=== PATIENT | female | born 1940 | race Caucasian/White ===

== ENCOUNTER 2016-08-12 11:29 | Inpatient (IN) | payer MEDICARE, OTHER ==
[2016-08-12] VITALS (13 sets, daily range): BP systolic 158–186; BP diastolic 61–99; PULSE 66–87; RESP 11–20; O2SAT 94–100
[~2016-08-12] VITALS: Ht 165.1 cm; Wt 78.9 kg
[~2016-08-12 11:29] MED LIST: [UNRECOGNIZED DRUG - CODE] PO
--- NOTE | 2016-08-12 13:05 | ED.REPORT ---
HPI-Extremity Problem Lower Date of Service Aug 12, 2016 ED Provider: Bharath Adair PA-C Deidre is a 76-year-old female with chief complaint of left knee pain. She reports slipping and falling as she opened her car door this morning. She felt her knee twist and has ambulated only with assistance since then. She reports "cracking sounds." Denies numbness/tingling in her foot. Denies striking her head, losing consciousness or injuring her neck in the fall. She denies dizziness, presyncope, syncope preceding the fall. Patient has history of A. fib but is not anticoagulated. She has no known drug allergies. She last ate at 06:30 this morning. Nursing Notes Stated Complaint: LEFT KNEE PAIN Chief Complaint: Extremity Trauma Nursing Notes Reviewed: Yes Allergies: Coded Allergies: No Known Allergies (Verified , 08/12/16) Scheduled Calcium Carbonate (Calcium Carbonate) 600 Mg Tablet 1,200 MG PO BIDWM Cholecalciferol (Vitamin D3) (Vitamin D3) 1,000 Unit Tab.chew 1,000 UNIT PO DAILY Cyanocobalamin (Vitamin B12) 500 Mcg Tablet 1,000 MCG PO QAM Digoxin (Digoxin) 250 Mcg Tablet 250 MCG PO QAM Multivit with Calcium,Iron,Min (Therapeutic M) 1 Each Tablet 1 EACH PO DAILY Vitamin E Mixed (Vitamin E) 400 Unit Capsule 1,600 UNIT PO DAILY Scheduled PRN Acetaminophen (Extra Strength Non-Aspirin) 500 Mg Tablet 500 MG PO DAILY PRN PRN For Pain Dextran 70/Hypromellose (Nature's Tears Eye Drops) 0.1 %-0.3 % Drops 2 DROP OP Q2H PRN PRN DRY EYES General Time Seen by MD: 12:39 Chief Complaint Knee injury left Hx Obtained From: Patient Past Medical History Past Medical History atrial fibrillation - not anticoagulated Smoking History Never Smoker Social History Alcohol Use: Denies alcohol use Ambulatory Status Independent Review of Systems Review of Systems Note: Negative unless stated otherwise in history of present illness Basic Review of Systems Respiratory: No shortness of breath Cardiovascular: No chest pain, No dyspnea on exertion Psychiatric: Normal thought content Constitutional: Denies: Chills, Fatigue, Fever Complete sys rev & neg: except as marked. Physical Exam General: Well appearing, well developed, well nourished, no acute distress. Left hip: Vital to inspection, nontender, good range of motion. Left knee: Mild swelling, no redness or heat. Moderate lateral joint line tenderness. Extremely limited range of motion, slight crepitus noted. Negative apprehension sign. Left ankle/foot: Slight swelling around left ankle. Florentin edema, brisk capillary refill, DP pulse 2+, PT pulse not appreciated, skin warm. Moderately flatfoot. Nontender, full range of motion. Head: Atraumatic, normocephalic. Eyes: No scleral icterus or injection. No discharge. Vision grossly intact. ENT: Voice clear, hearing grossly intact. Respiratory: No respiratory distress, no increased work of breathing. Speaks in complete sentences. Skin: Warm and dry. Neurological: Grossly nonfocal. Psychological: alert and oriented. Speech appropriate, linear and logical. Behavior appropriate. Initial Vital Signs Vital Signs (First) Date Time Temp Pulse Resp B/P Pulse Ox O2 Delivery O2 Flow Rate FiO2 08/12/16 11:34 36.3 75 16 182/91 98 Room Air Initial VS: Reviewed, Vital signs abnormal (elevated blood pressure) General/Constitutional: Well-developed, Well-nourished Head / Eyes: Atraumatic, Normocephalic ENT: Mucous membranes moist Neck: Supple, Non-tender Respiratory: Breath sounds normal, Clear to auscultation, No respiratory distress Cardiovascular: Regular rate & rhythm, Heart sounds normal, Intact distal pulses (bilaterally. Neurologically intact distal to injured L knee) Abdomen / GI: Soft, Non-tender Back: No CVA tenderness Skin: Warm, Dry Neurologic: Alert Psychiatric: Mood/affect normal, Behavior normal, Normal thought content Left Knee: Positive: Joint effusion present, ROM painful, ROM reduced, Swelling present... (Moderate), Tenderness present... (Moderate), Negative: Ecchymosis present, Erythema present, Warmth present Interpretation & Diagnostics Lab Results Interpretation Result Diagram: 08/12/16 1432 08/12/16 1432 Test 08/12/16 14:32 08/12/16 15:23 White Blood Count 7.1th/mm3 (3.8-10.1) Red Blood Count 5.03mil/mm3 (3.90-5.20) Hemoglobin 14.6g/dL (12.0-15.6) Hematocrit 42.9% (35.0-46.0) Mean Corpuscular Volume 85.3fL (81-100) Mean Corpuscular Hemoglobin 29.0pg (27.0-35.0) Mean Corpuscular Hemoglobin Concent 34.0% (32.0-37.0) Red Cell Distribution Width 13.8% (12.3-15.4) Platelet Count 247bil/L (150-400) Neutrophils (%) (Auto) 76.2% (40-74) Lymphocytes (%) (Auto) 15.7% (14-46) Monocytes (%) (Auto) 7.1% (4-12) Eosinophils (%) (Auto) 0.4% (0-5) Basophils (%) (Auto) 0.3% (0-3) Sodium Level 137mEq/L (134-144) Potassium Level 3.8mEq/L (3.5-5.2) Chloride Level 99mEq/L (97-108) Carbon Dioxide Level 22mmol/L (18-29) Blood Urea Nitrogen 12mg/dL (8-27) Creatinine 0.56mg/dL (0.57-1.00) Estimat Glomerular Filtration Rate 152mL/min (>59) Glucose Level 104mg/dL (60-99) Calcium Level 9.8mg/dL (8.5-10.1) Total Bilirubin 0.8mg/dL (0.0-1.2) Aspartate Amino Transf (AST/SGOT) 27U/L (0-50) Alanine Aminotransferase (ALT/SGPT) 23U/L (0-32) Alkaline Phosphatase 56U/L (25-165) Troponin T < 0.010ug/L (0.0-0.011) Total Protein 7.5g/dL (6.4-8.4) Albumin 4.6g/dL (3.4-5.0) Digoxin Level 0.7nG/mL (0.9-2.0) Urine Color Yellow (YELLOW) Urine Appearance Clear (CLEAR,HAZY) Urine pH 5.5 (5.0-8.0) Urine Specific [place] 1.010 (1.003-1.035) Urine Protein Negativemg/dL (NEG,TRACE) Urine Glucose (UA) Negativemg/dL (NEGATIVE) Urine Ketones Negativemg/dL (NEGATIVE) Urine Occult Blood Negative (NEGATIVE) Urine Nitrite Negative (NEGATIVE) Urine Bilirubin Negative (NEGATIVE) Urine Urobilinogen Normalmg/dL (NORMAL) Urine Leukocyte Esterase Negative (NEGATIVE) Urine RBC 0-2/hpf (0-2) Urine WBC 0-5/hpf (0-5) Urine Epithelial Cells Few/hpf (NONE-MOD) Urine Crystals None seen (NONE SEEN) Urine Bacteria Few/hpf (NONE-FEW) Urine Hyaline Casts None/lpf (NONE) Urine Granular Casts None seen (NONE SEEN) Urine Waxy Casts None seen (NONE SEEN) Urine Red Blood Cell Casts None seen (NONE SEEN) Urine White Blood Cell Casts None seen (NONE SEEN) Urine Mucus None seen (None Seen) Urine Trichomonas None seen (NONE SEEN) Urine Yeast None (NONE SEEN) Urinalysis Comment None Urine Culture Reflexed Not indicated Lab Results Interpretation: PROCEDURE: CT KNEE LEFT W/O CONTRAST ([id number]) IMPRESSION: 1. Mildly displaced intra-articular fracture of the distal femur as described. 2. Small to moderate sized lipohemarthrosis. Dictated by: Mario Rosenbaum M.D. on 08/12/2016 at 15:04 Approved by: Mario Rosenbaum M.D. on 08/12/2016 at 15:17 ECG Interpretation ECG Interpretation: Rate is 78. Chronic Afib. Time: 15:10 Interpreted by: ED physician X-Ray Interpretation Xray Interpretation: PROCEDURE: X-RAY LEFT KNEE, THREE VIEWS ([id number]) IMPRESSION: 1. Oblique fracture through the distal femur with likely intra-articular extension at the intercondylar notch. Moderate effusion is present. There is minimal displacement. Dictated by: Marleen Forbes M.D. on 08/12/2016 at 13:44 Approved by: Marleen Forbes M.D. on 08/12/2016 at 13:47 Interpretation / Wet Read by: Interpret - ED physician, Interpret - Radiologist, Interp - [facility] Re-Eval/Medical Decision Re-Evaluation/Progress #1: Time of Eval: 14:17 Re-Evaluation/Progress Note: Discussed x-ray findings with patient along with . Patient states her pain is sufficiently controlled. Care assumed by Dr Choi. Exam repeated, plan developed. Questions answered Re-Evaluation/Progress #2: Time of Eval: 14:53 Re-Evaluation/Progress Note: Rechecked patient to explain the plan for treatment. Re-Evaluation/Progress #3: Time of Eval: 16:34 Re-Evaluation/Progress Note: Rechecked patient and explained plan for patient to visit the OR by approximately 1700, explaining that Dr. Flores will perform the necessary surgery on the patient. Patient understands and agrees with the plan. Consultation #1: Referral / Consult Name: Johnathan Flores MD Consulted With: Orthopedic Call Returned at: 14:17 Director Dermatology: Agrees with eval, Agrees with plan Note: Discussed patient case with Dr. Flores. Consultation #2: Referral / Consult Name: Johnathan Flores MD Consulted With: Orthopedic Call Returned at: 16:21 Director Dermatology: Will see patient Note: Discussed patient case with Dr. Flores who agrees to see patient. Consultation #3: Referral / Consult Name: Jd Henley MD Consulted With: Hospitalist Call Returned at: 17:09 Director Dermatology: Agrees with eval, Agrees with plan, Accepts admit Note: Discussed patient case with Dr. Henley who accepts patient admit. Counseled Regarding: Diagnosis, Lab results, Need for admission Discharge & Departure Impression: Primary Impression: Femur fracture, left Encounter type: initial encounter Femur location: distal Fracture type: closed Fracture morphology: other fracture Qualified Code: S72.492A - Other fracture of lower end of left femur, initial encounter for closed fracture Additional Impression: Elevated blood pressure Disposition: ADMITTED TO HOSPITAL Discharge Condition All VS Reviewed: Yes Condition: Improved Referrals: Mackenzie Gonzalez DO (PCP) [employer] Attestation Portions of this note were transcribed by Julio Richards. I, Dr. Choi personally performed the history, physical exam and medical decision-making; I reviewed and confirmed the accuracy of the information in the transcribed note. Signed by: Balbir Michaels, 08/12/2016 [id number]. copies to: Mackenzie Gonzalez DO; Johnathan Flores MD, Seth PA-C Aug 12, 2016 13:05 Julio Richards Aug 12, 2016 15:06 Jennie Choi MD Aug 12, 2016 15:09
--- NOTE | 2016-08-12 13:49 | DRSVH ---
PROCEDURE: X-RAY LEFT KNEE, THREE VIEWS ([id number]) INDICATIONS: left knee pain TECHNIQUE: 3 views of the knee were acquired. COMPARISON: None. FINDINGS: Bones: There is oblique fracture through the distal diaphysis and metaphysis of the femur with an blake roximate 11 mm overlap the proximal and distal fragments. There is minimal displacement. Lucency on t he frontal view does appear to extend to the articular surface at the level of the intercondylar notc h. There is prominent medial and patellofemoral compartment narrowing. Minimal lateral compartment narro wing is present. Periarticular osteophytes are present. Soft tissues: Moderate joint effusion. No suspicious soft tissue calcifications. IMPRESSION: 1. Oblique fracture through the distal femur with likely intra-articular extension at the intercondyl ar notch. Moderate effusion is present. There is minimal displacement. Dictated by: Marleen Forbes M.D. on 08/12/2016 at 13:44 Approved by: Marleen Forbes M.D. on 08/12/2016 at 13:47
[2016-08-12] MEDS ORDERED: fentaNYL-PF 50 mCg/mL 2 mL Inj ONE (13:50)
[2016-08-12] MEDS ORDERED: Remifentanil 1 mg/3 mL Inj ONE (13:50)
[2016-08-12] MEDS ORDERED: Dexamethasone 4 mg/mL Inj ONE (13:50)
[2016-08-12] MEDS ORDERED: Rocuronium 10 mg/mL 5 mL Inj ONE (13:50)
[2016-08-12] MEDS ORDERED: Propofol 10,000 mCg/mL 20 mL Inj ONE (13:50)
[2016-08-12] MEDS ORDERED: HYDROmorphone 0.5 mg/0.5 mL iSecure Syringe IVPUSH PRN (14:20)
[2016-08-12] MEDS ORDERED: Ondansetron 2 mg/mL 2 mL Inj IVPUSH PRN ×4 (14:20→21:40)
[2016-08-12 14:59] LABS: BASOPHILS % (AUTO) 0.3 % (0-3); EOSINOPHILS % (AUTO) 0.4 % (0-5); MONOCYTES % (AUTO) 7.1 % (4-12); Mean Corpuscular Volume 85.3 fL (81-100); NEUTROPHILS % (AUTO) 76.2 % (40-74); Platelet Count 247 bil/L (150-400)
[2016-08-12] MEDS ORDERED: ACET-2561 PO (15:18)
--- NOTE | 2016-08-12 15:18 | DRSVH ---
PROCEDURE: CT KNEE LEFT W/O CONTRAST ([id number]) INDICATIONS: fracture, pre op TECHNIQUE: Noncontrast 1-1.5 mm axial sections acquired from the mid-patella to the proximal tibia, with coronal and sagittal reformats. COMPARISON: [facility], CR, XR KNEE 3VW LT, 08/12/2016, 13:11. FINDINGS: Image quality: Excellent. Bones: There is diffuse osteopenia. There is a longitudinal shear fracture in the sagittal plane inv olving the distal medial femoral shaft extending through the medial femoral condyle to the intercondy lar notch with associated articular involvement. There is proximal displacement of the medial compon ent by approximately 9 mm and posterior displacement by approximately 7 mm. There is also mild media l displacement by approximately 9 mm proximally. The tibia appears intact. The patella also appears intact. There is tricompartmental osteophytosis in the knee. Moderate to severe joint space narrow ing is demonstrated in the medial compartment with subchondral sclerosis and cystic changes. Soft tissues: There is a small to moderate joint effusion with a lipohemarthrosis. There is para-art icular soft tissue swelling. No discrete hematoma collections but evaluation for vascular injury is limited in the absence of intravenous contrast. IMPRESSION: 1. Mildly displaced intra-articular fracture of the distal femur as described. 2. Small to moderate sized lipohemarthrosis. Dictated by: Mario Rosenbaum M.D. on 08/12/2016 at 15:04 Approved by: Mario Rosenbaum M.D. on 08/12/2016 at 15:17
[2016-08-12 15:23] LABS: TROPONIN T < 0.010 ug/L (0.0-0.011)
[2016-08-12] MEDS ORDERED: DIGO250T72 PO (15:23)
[2016-08-12 16:02] LABS: APPEARANCE,URINE CLEAR (CLEAR,HAZY); COLOR,URINE YELLOW (YELLOW); OCCULT BLOOD,URINE NEGATIVE (NEGATIVE); PH,URINE 5.5 (5.0-8.0); UROBILINOGEN,URINE NORMAL (NORMAL)
[2016-08-12] MEDS ORDERED: CYAN500 PO (16:29)
[2016-08-12] MEDS ORDERED: VITA400C64 PO (16:29)
[2016-08-12] MEDS ORDERED: MULT-140 PO (16:29)
[2016-08-12] MEDS ORDERED: CHOL10008 PO (16:29)
[2016-08-12] MEDS ORDERED: CALC600T20 PO (16:29)
[2016-08-12] MEDS ORDERED: DEXT15DR24 OP (16:29)
[2016-08-12] MEDS ORDERED: Alum-Mag Hydrox-Simeth 30 mL Suspension PO PRN (17:10)
[2016-08-12] MEDS ORDERED: HYDROcodone-APAP 5-325 mg Tablet PO PRN (17:10)
[2016-08-12] MEDS ORDERED: Polyethylene Glycol (PEG) 17 Gm Powder PO PRN ×2 (17:10→21:40)
--- NOTE | 2016-08-12 18:33 | PCM.CONORT ---
Subjective Date of Surgery: Aug 12, 2016 Surgeon Admitting Provider:Jd Henley MD Attending Provider:Jd Henley MD Primary Care Physician:Mackenzie Gonzalez DO Other Provider:Angeline Blanchard Anesthesia Reason for Consultation: left knee pain Allergy Allergies: Coded Allergies: No Known Allergies (Verified , 08/12/16) Medications Acetaminophen (Extra Strength Non-Aspirin) 500 Mg Tablet 500 MG PO DAILY PRN PRN For Pain (Reported) Last Taken: 500 MG on Unknown Date & Time Calcium Carbonate (Calcium Carbonate) 600 Mg Tablet 1,200 MG PO BIDWM (Reported) Last Taken: 1,200 MG on 08/12/16 0900 Cholecalciferol (Vitamin D3) (Vitamin D3) 1,000 Unit Tab.chew 1,000 UNIT PO DAILY (Reported) Last Taken: 1,000 UNITS on 08/12/16 0900 Cyanocobalamin (Vitamin B12) 500 Mcg Tablet 1,000 MCG PO QAM (Reported) Last Taken: 1,000 MCG on 08/12/16 0900 Dextran 70/Hypromellose (Nature's Tears Eye Drops) 0.1 %-0.3 % Drops 2 DROP OP Q2H PRN PRN DRY EYES (Reported) Last Taken: 2 DROPS on Unknown Date & Time Digoxin (Digoxin) 250 Mcg Tablet 250 MCG PO QAM (Reported) Last Taken: 250 MCG on 08/12/16 0800 Multivit with Calcium,Iron,Min ( Therapeutic M) 1 Each Tablet 1 EACH PO DAILY (Reported) Last Taken: 1 TABLET on 08/12/16 0900 Vitamin E Mixed (Vitamin E) 400 Unit Capsule 1,600 UNIT PO DAILY (Reported) Last Taken: 1,600 UNITS on 08/12/16 0900 Discontinued Medications Digoxin-Expunged Drug, Do Not Renew! (Digoxin-Expunged Drug, Do Not Renew!) 250 Mcg Tablet 250 MCG PO AM (Reported) History History of ENT Problems?: No Hx of Heart Problems?: Yes Cardiovascular History: Positive for:: Irregular Heartbeat (afib) Denies:: Congestive Heart Failure Hypertension Other Cardiac History: hx HLD Hx of Respiratory Problem?: No Respiratory History: Denies:: Tuberculosis Hx Neurologic Problems?: No Hx of GI Problems?: No Hx of Problems?: No Female Hx: Denies:: Currently Endometriosis Pelvic Inflammatory Problems with Breasts? Hx Musculoskeletal Problems?: Yes Other History/Comment Deidre Mesa is a 76-year-old female who reports slipping and falling as she opened her car door this morning. She felt her knee twist and reports hearing "cracking sounds." Patient has history of A. fib but is not anticoagulated. She has no known drug allergies. She last ate at 06:30 this morning. The patient states that their pain is a sharp in nature and mild/moderate in severity localized to the medial and lateral aspect of the left knee without radiation. Moreover, the pain is exacerbated by activities, especially with any movement. Rest seems to improve the symptoms. There is no reports numbness , tingling, or weakness to the affected distal lower extremity. The patient denies any fever, chills, nausea, vomiting, chest pain, shortness of breath, or calf tenderness. Previous treatment has included: None Work/hobbies/sports include: Accompanied by Son and granddaughter Hx of Psycho/Social Problems?: No Hx Surgeries?: Yes (APPY AGE 12, RIGHT HAND) Hx Any Other Health Problems?: Yes Other History: Positive for:: Hospitalization Thyroid Disease (hx of parathyroid adenoma) Denies:: Cancer History Blood Transfusions: Positive for:: Accept Blood Products? Denies:: Blood Transfusions Hx Diabetes: No (WAS PREDIABETIC FOR A WHILE) Other Pertinent History: varicose veins Hx Alcohol Use: NoHx Substance Use: No Smoking Status: Never Smoker Objective Exam Vital Signs & I/O Vital Sign- Last 8 Hours Date Time Temp Pulse Resp B/P Pulse Ox O2 Delivery O2 Flow Rate FiO2 08/12/16 15:10 66 13 158/61 94 Room Air 08/12/16 11:34 36.3 75 16 182/91 98 Room Air Lab & Micro Results Laboratory Tests Test 08/12/16 14:32 08/12/16 15:23 White Blood Count 7.1th/mm3 (3.8-10.1) Red Blood Count 5.03mil/mm3 (3.90-5.20) Hemoglobin 14.6g/dL (12.0-15.6) Hematocrit 42.9% (35.0-46.0) Mean Corpuscular Volume 85.3fL (81-100) Mean Corpuscular Hemoglobin 29.0pg (27.0-35.0) Mean Corpuscular Hemoglobin Concent 34.0% (32.0-37.0) Red Cell Distribution Width 13.8% (12.3-15.4) Platelet Count 247bil/L (150-400) Neutrophils (%) (Auto) 76.2% (40-74) Lymphocytes (%) (Auto) 15.7% (14-46) Monocytes (%) (Auto) 7.1% (4-12) Eosinophils (%) (Auto) 0.4% (0-5) Basophils (%) (Auto) 0.3% (0-3) Sodium Level 137mEq/L (134-144) Potassium Level 3.8mEq/L (3.5-5.2) Chloride Level 99mEq/L (97-108) Carbon Dioxide Level 22mmol/L (18-29) Blood Urea Nitrogen 12mg/dL (8-27) Creatinine 0.56mg/dL (0.57-1.00) Estimat Glomerular Filtration Rate 152mL/min (>59) Glucose Level 104mg/dL (60-99) Calcium Level 9.8mg/dL (8.5-10.1) Total Bilirubin 0.8mg/dL (0.0-1.2) Aspartate Amino Transf (AST/SGOT) 27U/L (0-50) Alanine Aminotransferase (ALT/SGPT) 23U/L (0-32) Alkaline Phosphatase 56U/L (25-165) Troponin T < 0.010ug/L (0.0-0.011) Total Protein 7.5g/dL (6.4-8.4) Albumin 4.6g/dL (3.4-5.0) Digoxin Level 0.7nG/mL (0.9-2.0) Urine Color Yellow (YELLOW) Urine Appearance Clear (CLEAR,HAZY) Urine pH 5.5 (5.0-8.0) Urine Specific [place] 1.010 (1.003-1.035) Urine Protein Negativemg/dL (NEG,TRACE) Urine Glucose (UA) Negativemg/dL (NEGATIVE) Urine Ketones Negativemg/dL (NEGATIVE) Urine Occult Blood Negative (NEGATIVE) Urine Nitrite Negative (NEGATIVE) Urine Bilirubin Negative (NEGATIVE) Urine Urobilinogen Normalmg/dL (NORMAL) Urine Leukocyte Esterase Negative (NEGATIVE) Urine RBC 0-2/hpf (0-2) Urine WBC 0-5/hpf (0-5) Urine Epithelial Cells Few/hpf (NONE-MOD) Urine Crystals None seen (NONE SEEN) Urine Bacteria Few/hpf (NONE-FEW) Urine Hyaline Casts None/lpf (NONE) Urine Granular Casts None seen (NONE SEEN) Urine Waxy Casts None seen (NONE SEEN) Urine Red Blood Cell Casts None seen (NONE SEEN) Urine White Blood Cell Casts None seen (NONE SEEN) Urine Mucus None seen (None Seen) Urine Trichomonas None seen (NONE SEEN) Urine Yeast None (NONE SEEN) Urinalysis Comment None Urine Culture Reflexed Not indicated Result Diagram: 08/12/16 1432 08/12/16 1432 Review of Systems: Constitutional: Negative, except as otherwise mentioned in the history above. Ophthalmologic: Negative, except as otherwise mentioned in the history above. Cardiovascular: Negative, except as otherwise mentioned in the history above. Respiratory: Negative, except as otherwise mentioned in the history above. Gastrointestinal: Negative, except as otherwise mentioned in the history above. Genitourinary: Negative, except as otherwise mentioned in the history above. Musculoskeletal: Negative, except as otherwise mentioned in the history above. Neurological: Negative, except as otherwise mentioned in the history above. Psychiatric: Negative, except as otherwise mentioned in the history above. Hematologic/Lymphatic: Negative, except as otherwise mentioned in the history above. Allergic/Immunologic: Negative, except as otherwise mentioned in the history above. H&P Surgical Exam Exam Musculoskeletal: CONST: WD,WN, NAD, A+OX3 OCULAR: EOMI, no conjunctivitis/icterus ENT: no deformities, scars or lesions CARDIAC: Pulse is regular. No cyanosis,clubbing,edema RESP: regular,unlabored MSK: normal light touch SPN/DPN/TN distributions.4+/5 DF/PF/Inv/Ev, 2+ DP Left KNEE - scars. ++effusion - erythema - atrophy or asymmetry. TTP medial and lateral knee alignment- neutral, ROM Deferred Additional Information Three-view x-rays the left knee demonstrates a medial condylar distal femur intra-articular fracture with displacement H&P Preop Plan Impression Left distal femur intraarticular condylar fracture Problems: Risks & Benefits * We have reviewed the risks and benefits as well as the alternatives to surgery. All questions were answered to the patient's satisfaction and a counseling note to that effect. The patient has provided informed consent. * I have counseled the patient regarding the deleterious effects that smoking during the perioperative period can have upon wound healing, infection rates, and the overall rate of complications. Plan Nonweightbearing with lower extremity Recommend CT scan for further delineation of the fracture pattern Plan for ORIF of left distal femur Pain meds as needed Continue medical management per primary Please call with questions DVT prophylaxis after surgery I reviewed my findings with the patient. The patient remains symptomatic following the initial injury. In light of the ongoing symptoms, our plan is to proceed with surgical intervention. I have explained to the patient the nature of the surgery as well as the perioperative recovery including the risks, benefits and alternatives. A clear explanation was given to the patient regarding the condition present, and the available conservative and surgical options. It was emphasized that the risks and benefits of surgery include but are not limited to infection, wound healing problems, damage to adjacent structures such as nerves, blood vessels and tendons, intermodal truck driver disability and pain, arthritis, hypersensitivity, deep vein thrombosis, pulmonary embolism, broken hardware, failure of surgery, need for further procedures at time of surgery or later, loss of limb, heart attack, stroke, and . The patient was given an explanation and the patient voiced understanding of what to expect after the procedure or surgery, the limitations in activities of daily living, the likely duration for post operative recovery and the instructions that are to be followed. At the end the patient was invited to seek clarification or ask further questions but there were none. I have advised the patient first that there are no guarantees as to outcome and that their ultimate improvement is largely based on the extent of the pre-existing underlying pathology. The patients questions were answered and they stated understanding of the nature of the surgical procedure and gave written and verbal consent to proceed. The patient voiced understanding of the entire consultation. Johnathan Flores MD Aug 12, 2016 18:33
[2016-08-12] MEDS ORDERED: Lactated Ringer's 1,000 ML IV ONE ×2 (19:00→21:39)
[2016-08-12] MEDS ORDERED: Ropivacaine-PF 0.5% 30 mL Inj INFILTRATE ONE (19:59)
[2016-08-12] MEDS ORDERED: Lactated Ringer's 1,000 ML IV SCH (20:23)
[2016-08-12] MEDS ORDERED: Lactated Ringer's 500 ML IV PRN (20:23)
--- NOTE | 2016-08-12 20:23 | PCM.HPANE ---
Patient Data Surgeon Admitting Provider:Jd Henley MD Attending Provider:Jd Henley MD Primary Care Physician:Mackenzie Gonzalez DO Other Provider:Angeline Blanchard Anesthesia Reason for Visit L Knee Distal Femur Fracture, R/O Chronic Afib Ht/WT & BMI Height (Feet): 5 Height (Inches): 5 Weight (Kilograms): 81.82 Body Mass Index Allergies Coded Allergies: No Known Allergies (Verified , 08/12/16) Past Anesthesia History Anesthesia History: Denies:: Anesthesia Reactions Diabetes History Hx Diabetes?: No (WAS PREDIABETIC FOR A WHILE) MRSA MRSA: No Medications Reported Medications Dextran 70/Hypromellose (Nature's Tears Eye Drops)0.1 %-0.3 % Drops2 Drop OP Q2H PRN DRY EYES 08/12/16 Calcium Carbonate 600 Mg Tablet1,200 Mg PO BIDWM 08/12/16 Multivit with Calcium,Iron,Min (Therapeutic M)1 Each Tablet1 Each PO DAILY 08/12/16 Cholecalciferol (Vitamin D3) (Vitamin D3)1,000 Unit Tab.chew1,000 Unit PO DAILY 08/12/16 Cyanocobalamin (Vitamin B12)500 Mcg Tablet1,000 Mcg PO QAM 08/12/16 Vitamin E Mixed (Vitamin E)400 Unit Capsule1,600 Unit PO DAILY 30 Days 08/12/16 Digoxin 250 Mcg [id number] Mcg PO QAM 08/12/16 Acetaminophen (Extra Strength Non-Aspirin)500 Mg [id number] Mg PO DAILY PRN For Pain 08/12/16 Discontinued Reported Medications Digoxin-Expunged Drug, Do Not Renew! 250 Mcg [id number] Mcg PO AM 06/03/08 History History of ENT Problems?: No Hx of Heart Problems?: Yes Cardiovascular History: Positive for:: Irregular Heartbeat (afib) Denies:: Congestive Heart Failure Hypertension Other Cardiac History: hx HLD Hx of Respiratory Problem?: No Respiratory History: Denies:: Tuberculosis Hx Neurologic Problems?: No Hx of GI Problems?: No Hx of Problems?: No Female Hx: Denies:: Currently Endometriosis Pelvic Inflammatory Problems with Breasts? Hx Musculoskeletal Problems?: Yes Hx of Psycho/Social Problems?: No Hx Surgeries?: Yes (APPY AGE 12, RIGHT HAND) Hx Any Other Health Problems?: Yes Other History: Positive for:: Hospitalization Thyroid Disease (hx of parathyroid adenoma) Denies:: Cancer History Blood Transfusions: Positive for:: Accept Blood Products? Denies:: Blood Transfusions Hx Diabetes: No (WAS PREDIABETIC FOR A WHILE) Other Pertinent History: varicose veins Hx Alcohol Use: NoHx Substance Use: No Smoking Status: Never Smoker Stop/Bang Treated for Sleep Apnea?: No Do You Have a CPAP Machine?: No S-Snoring: Do You Snore Loudly: No T-Tired: feel tired, fatigued: No O-Obsered: Observed not breath: No P-Blood Pressure: treated: No B- Body Mass Index > 35 kg/m2: No A- Age over 50: Yes N- Neck Large Circumference: No G- Gender Male: No JITENDRA Total Score: 0 Risk Assessment Category Category 1A: Patient has history of documented sleep apnea, and HAS NOT received any narcotic, sedative or anesthesia administration during this stay. Category 1B: Patient has history of documented sleep apnea, and HAS received any narcotic , sedative or anesthesia administration during this stay Category 2: Patient has SUSPECTED Obstructive Sleep Apnea, and HAS received any narcotic , sedative or anesthesia administration during this stay. Category 3: Patient has SUSPECTED Obstructive Sleep Apnea and HAS NOT received narcotic, sedative or anesthesia administration during this stay. Category 4: Outpatient in Procedural Areas with known sleep apnea or who screen positive for High Risk via the STOP/BANG questionnaire. Exam Exam Vital Signs Vital Signs Date Time Temp Pulse Resp B/P Pulse Ox O2 Delivery O2 Flow Rate FiO2 08/12/16 15:10 66 13 158/61 94 Room Air 08/12/16 11:34 36.3 75 16 182/91 98 Room Air General Appearance: Alert, Oriented X3, Cooperative, Severe Distress (Left leg pain) HEENT/AIRWAY: MP 2, Neck Movement (FROM), Mouth Opening (3 FBMO) Lungs: Clear to Auscultation, Normal Air Movement Heart: Other (irreg irreg) Meds/Labs/Diagnostics Admission Meds Current Medications Acetaminophen (Tylenol) 975 mg ONCE ONCE PO Last administered on 08/12/16 13: 31; Start 08/12/16 at 13:00; Stop 08/12/16 at 13:01; Status DC Oxycodone HCl (Roxicodone IR) 5 mg ONCE ONCE PO Last administered on 3/31/ 17at 13:31; Start 08/12/16 at 13:00; Stop 08/12/16 at 13:01; Status DC Labs Test 08/12/16 14:32 08/12/16 15:23 White Blood Count 7.1th/mm3 (3.8-10.1) Red Blood Count 5.03mil/mm3 (3.90-5.20) Hemoglobin 14.6g/dL (12.0-15.6) Hematocrit 42.9% (35.0-46.0) Mean Corpuscular Volume 85.3fL (81-100) Mean Corpuscular Hemoglobin 29.0pg (27.0-35.0) Mean Corpuscular Hemoglobin Concent 34.0% (32.0-37.0) Red Cell Distribution Width 13.8% (12.3-15.4) Platelet Count 247bil/L (150-400) Neutrophils (%) (Auto) 76.2% (40-74) Lymphocytes (%) (Auto) 15.7% (14-46) Monocytes (%) (Auto) 7.1% (4-12) Eosinophils (%) (Auto) 0.4% (0-5) Basophils (%) (Auto) 0.3% (0-3) Sodium Level 137mEq/L (134-144) Potassium Level 3.8mEq/L (3.5-5.2) Chloride Level 99mEq/L (97-108) Carbon Dioxide Level 22mmol/L (18-29) Blood Urea Nitrogen 12mg/dL (8-27) Creatinine 0.56mg/dL (0.57-1.00) Estimat Glomerular Filtration Rate 152mL/min (>59) Glucose Level 104mg/dL (60-99) Calcium Level 9.8mg/dL (8.5-10.1) Total Bilirubin 0.8mg/dL (0.0-1.2) Aspartate Amino Transf (AST/SGOT) 27U/L (0-50) Alanine Aminotransferase (ALT/SGPT) 23U/L (0-32) Alkaline Phosphatase 56U/L (25-165) Troponin T < 0.010ug/L (0.0-0.011) Total Protein 7.5g/dL (6.4-8.4) Albumin 4.6g/dL (3.4-5.0) Digoxin Level 0.7nG/mL (0.9-2.0) Urine Color Yellow (YELLOW) Urine Appearance Clear (CLEAR,HAZY) Urine pH 5.5 (5.0-8.0) Urine Specific [place] 1.010 (1.003-1.035) Urine Protein Negativemg/dL (NEG,TRACE) Urine Glucose (UA) Negativemg/dL (NEGATIVE) Urine Ketones Negativemg/dL (NEGATIVE) Urine Occult Blood Negative (NEGATIVE) Urine Nitrite Negative (NEGATIVE) Urine Bilirubin Negative (NEGATIVE) Urine Urobilinogen Normalmg/dL (NORMAL) Urine Leukocyte Esterase Negative (NEGATIVE) Urine RBC 0-2/hpf (0-2) Urine WBC 0-5/hpf (0-5) Urine Epithelial Cells Few/hpf (NONE-MOD) Urine Crystals None seen (NONE SEEN) Urine Bacteria Few/hpf (NONE-FEW) Urine Hyaline Casts None/lpf (NONE) Urine Granular Casts None seen (NONE SEEN) Urine Waxy Casts None seen (NONE SEEN) Urine Red Blood Cell Casts None seen (NONE SEEN) Urine White Blood Cell Casts None seen (NONE SEEN) Urine Mucus None seen (None Seen) Urine Trichomonas None seen (NONE SEEN) Urine Yeast None (NONE SEEN) Urinalysis Comment None Urine Culture Reflexed Not indicated Plan Impression Patient chart reviewed, patient interviewed and anesthestic plan with risks, benefits, and alternatives discussed, and informed consent obtained. NPO Status: > 8hrs ASA Physical Status: ASA3 Plus Emergency (A fib, severe femur fracture) Anesthetic Support Modalities: Arterial Line (possible A line consent obtained) Anesthetic Plan: GA, Regional Block (consent for postoperative rescue femoral block obtained if OK'd by surgeon) Bene/Risks/Altern/Consents: Yes HP Complete Prior to Induction: Yes Junior Gay MD Aug 12, 2016 19:09
[2016-08-12] MEDS ORDERED: EPHEDrine Sulfate 50 mg/mL Inj IVPUSH PRN (20:25)
[2016-08-12] MEDS ORDERED: Phenylephrine 10,000 mCg/mL Inj IVPUSH PRN (20:25)
[2016-08-12] MEDS ORDERED: Labetalol 5 mg/mL 4 mL Inj IV PRN (20:25)
[2016-08-12] MEDS ORDERED: Atropine 0.4 mg/mL Inj IVPUSH PRN (20:25)
[2016-08-12] MEDS ORDERED: fentaNYL-PF 50 mCg/mL 2 mL Inj IVPUSH PRN (20:25)
[2016-08-12] MEDS ORDERED: MetoCLOpramide 5 mg/mL 2 mL Inj IVPUSH PRN ×2 (20:25→21:40)
[2016-08-12] MEDS: Lactated Ringer's 1,000 ML IV SCH (21:36)
[2016-08-12] MEDS ORDERED: HYDROmorphone 2 mg/mL Inj IVPUSH PRN (21:40)
[2016-08-12] MEDS ORDERED: Ketorolac 15 mg/mL Inj IVPUSH PRN (21:40)
[2016-08-12] MEDS ORDERED: Sodium Biphos-Phos 133 mL Enema RECTAL PRN (21:40)
[2016-08-12] MEDS ORDERED: Magnesium Hydroxide 10 mL Oral Concentration PO PRN (21:40)
[2016-08-12] MEDS ORDERED: diphenhydrAMINE 25 mg Capsule PO PRN (21:40)
--- NOTE | 2016-08-12 21:52 | PCM.ORTHOP ---
Orthopedic Operative Report Date of Service: Aug 12, 2016 Pre Operative Diagnosis Left distal femur intra-articular condyle fracture Post Operative Diagnosis Same Procedure Left distal femur open reduction internal fixation Surgeon Surgeon: Johnathan Flores Assistants: Marc Walker Indication for Procedure Left distal femur fracture Findings Left comminuted spiral distal femur fracture Details of Procedure Indications: Deidre Mesa is a 76-year-old female with a distal femur fracture which occurred this morning. A clear explanation was given to the patient regarding the condition present, and the available conservative and surgical options. It was emphasized that the risks and benefits of surgery include but are not limited to infection, wound healing problems, damage to adjacent structures such as nerves, blood vessels and tendons, long term care social worker disability and pain, arthritis, hypersensitivity, deep vein thrombosis, pulmonary embolism, broken hardware, failure of surgery, need for further procedures at time of surgery or later, cast related problems, loss of limb or life. The patient was given an explanation and the patient voiced understanding of what to expect after the procedure or surgery, the limitations in activities of daily living, the likely duration for post operative recovery and the instructions that are to be followed. At the end the patient was invited to seek clarification or ask further questions but there were none. The patient voiced understanding of the entire consultation. Description of Operation: Patient taken to operating room and transferred to operating table in supine position. Time out was performed with both anesthesia and orthopaedics faculty present to confirm details of case to be performed. After time out performed, patient placed under general anesthesia and endotracheal tube secured into place. Patient position was again checked to ensure all bony prominences adequately padded. The left leg was prepped and draped in the usual sterile fashion. A 7 cm lateral incision was made along the medial thigh.. Dissection was carefully carried between the sartorius and the vastus medialis. The adductor Jeremías and sartorius was retracted posteriorly to protect the neurovascular structures. Maintaining hemostasis throughout. The osuna elevater was used to elevate the soft tissue off the medial condyle to allow centered positioning of our 6 hole LCP plate and screws as well as exposure of the fracture. The distal femur fracture was reduced with traction and elevation of the distal fragments out of extension. The intraarticular component was reduced with a Lion clamp and then the distal 7.0 cannulated partially threaded screws were used to hold the fracture reduced. A Buttress 6-hole plate was applied to the medial column and secured with K-wires distally through the locking guides followed by locking nonlocking screws. The plate position was verified with orthogonal views using fluoroscopy. Fluoroscopy confirmed reduction of the fracture and plate placement in orthogonal views. Fluoroscopy determined excellent alignment of limb and position of the plate. The fracture was well reduced despite the medial and posterior comminution as confirmed with C-arm in AP and lateral views. The wound was thoroughly irrigated by bulb irrigation. Hemostasis was obtained with electrocautery. The fascia band was closed with 0 Vicryl. The subcutaneous space was closed with interrupted 2-0 Vicryl suture. The skin was closed with riki. Xeroform, 4 x 4's, ABD, STEFFANY hose stocking and knee immobilizer was placed.The patient was extubated without difficulty and transferred to the PACU in stable condition. FRUIT TRIMMER SURGEON: During the operation, the services of physician expanded duty dental assistant were medically indicated and necessary to provide exposure of the operative site for the surgical procedure and to maintain the limb in a proper position to carry out the operation safely and efficiently. Without the qualified assistant general manager being present, it would have extended the operative procedure and made the procedure technically more difficult to perform. Please keep dressing clean dry and intact. Do not get your dressing wet. Please change your dressing daily starting on postop day #2. Please take anticoagulation as prescribed for 4 weeks. You may remain touchdown weightbearing to the affected lower extremity with brace. You may remove your brace for gentle knee range of motion in 2 weeks. Return to clinic in 2 weeks with x-rays in clinic with me. You will follow up with my PA in 6 weeks with x- rays and we will progress your weightbearing status once radiographic healing has been noted. Please keep the affected extremity elevated when possible. You may use ice and/or heat as needed for comfort. Grafts, Implants: Implants-See Implant Record Complications There were no periprocedural complications identified. Condition Stable Anesthetic Administered: GA Catheters: None Output, Estimated Blood Loss: 50 Blood Admin during surgery: No Surgical Cast or Splint: Knee Immobilizer Surgical Specimen Removed: No Specimen sent to Pathology: No copies to: Johnathan Flores MD, Christopher L MD Aug 12, 2016 21:52
[2016-08-12] MEDS: HYDROmorphone 1 mg/mL Inj IVPUSH PRN ×3 (22:05→22:30)
--- NOTE | 2016-08-12 23:35 | PCM.HPMED ---
Subjective Date of Service Aug 12, 2016 Primary Provider: Admitting Physician: Primary Care Physician: Mackenzie Gonzalez DO Attending Physician: Admit Status: From the Emergency Department, Full Admit, Remote Telemetry Chief Complaint: Left knee pain after fall History of Present Illness: Deidre Mesa is a 76-year-old female with Chronic Atrial fibrillation, Neuropathy, Hypothyroid who present to [facility] emergency department with chief complaint of left knee pain after a fall today. She reports slipping and falling as she opened her car door this morning. She felt her knee twist and has ambulated only with assistance since then. She reports "cracking sounds." Denies numbness/tingling in her foot. Denies striking her head, losing consciousness or injuring her neck in the fall. She denies dizziness, presyncope, syncope prior to the episode. Son reported patient has been falling alot but without any loss of consciousness. Patient has history of A. fib but is not anticoagulated on Digoxin. Case discussed with Dr Liriano, Dr Flores from Ortho took patient to the OR Review of Systems: Pertinent positives as noted in HPI. All other systems were reviewed and are negative Allergies Coded Allergies: No Known Allergies (Verified , 08/12/16) Home Medications From Deidre Callaway Tena. [id number] 1940 04/13/2016 08:30 AM / Calcium 500 500 mg calcium (1,250 mg) tablet 4 tablets daily Co-Veratrol 200 mg-5 mg-0.8 mg-400 mg capsule take 2 caps daily by mouth Coenzyme Q10 30 Mg 1 capsule by mouth 2 times daily digoxin 250 mcg tablet TAKE ONE TABLET BY MOUTH ONCE DAILY Hyaluronic Acid (hyaluronate sodium) 20 mg Cap Magnesium Aspartate 90Mg 1 tablet by mouth 2 times at bedtime multivitamin tablet daily [place]-3 take as directed pentoxifylline ER 400 mg tablet,extended release take 1 tablet by oral route 2 times every day with meals Vitamin C 1000 Mg 2 tablets by mouth 2 times daily Vitamin D3 4,000 unit capsule take 1 tablet daily vitamin E 1,000 unit Cap 1 time daily PMH Stasis dermatitis Neuropathy Atrial Fibrillation Hypothyroidism, not on any hormone therapy Parathyroid adenoma with Hypercalcemia Varicose veins Congestive heart failure Hyperlipidemia Osteopenia . Surgical History Hysterectomy Appendectomy Parathyroid adenoma removal Family History Father had MA age 69, Alcoholism Mother had valvular heart disease Sister had Lung cancer Social History Hx Alcohol Use: No Hx Substance Use: No Smoking Status: Never Smoker Living Arrangement: Alone Exam Vital Signs Vital Sign - Last Date Time Temp Pulse Resp B/P Pulse Ox O2 Delivery O2 Flow Rate FiO2 08/12/16 15:10 66 13 158/61 94 Room Air 08/12/16 11:34 36.3 Exam General: Alert, Oriented X3, Cooperative, No acute Distress Eyes: PERRLA, Scleral Anicteric Mouth: Mouth Normal, Mucous Membranes Moist/[place] Neck: Supple, no Thyromegaly, trachea central. Chest & Lungs: Clear to auscultation & percussion, No adventitious breath sounds, no crackles, no wheeze Cardiovascular: Normal S1, Normal S2, No Murmurs/Rubs/Gallops, Regular Rate/ Rhythm, (No JVD, no peripheral edema) Pulses: Radial (present and equal), Dorsalis Pedi (present and equal) Abdomen: Soft, Non-tender, Non-distended, Normoactive bowel tones. Musculoskeletal: Unremarkable. Normal range of motion, no swollen or erythematous joints Extremities: No edema, no cyanosis, no clubbing. Left knee dressing in place Skin: No rashes. Warm and dry, no erythematous areas Neurological: Grossly neurologically intact, has generalized weakness, Normal Speech, Sensation Intact Lymphatic: Lymph nodes Cervical and Axillary not palpable. Lab and Diagnostics Labs Laboratory Tests Test 08/12/16 14:32 08/12/16 15:23 White Blood Count 7.1th/mm3 (3.8-10.1) Red Blood Count 5.03mil/mm3 (3.90-5.20) Hemoglobin 14.6g/dL (12.0-15.6) Hematocrit 42.9% (35.0-46.0) Mean Corpuscular Volume 85.3fL (81-100) Mean Corpuscular Hemoglobin 29.0pg (27.0-35.0) Mean Corpuscular Hemoglobin Concent 34.0% (32.0-37.0) Red Cell Distribution Width 13.8% (12.3-15.4) Platelet Count 247bil/L (150-400) Neutrophils (%) (Auto) 76.2% (40-74) Lymphocytes (%) (Auto) 15.7% (14-46) Monocytes (%) (Auto) 7.1% (4-12) Eosinophils (%) (Auto) 0.4% (0-5) Basophils (%) (Auto) 0.3% (0-3) Sodium Level 137mEq/L (134-144) Potassium Level 3.8mEq/L (3.5-5.2) Chloride Level 99mEq/L (97-108) Carbon Dioxide Level 22mmol/L (18-29) Blood Urea Nitrogen 12mg/dL (8-27) Creatinine 0.56mg/dL (0.57-1.00) Estimat Glomerular Filtration Rate 152mL/min (>59) Glucose Level 104mg/dL (60-99) Calcium Level 9.8mg/dL (8.5-10.1) Total Bilirubin 0.8mg/dL (0.0-1.2) Aspartate Amino Transf (AST/SGOT) 27U/L (0-50) Alanine Aminotransferase (ALT/SGPT) 23U/L (0-32) Alkaline Phosphatase 56U/L (25-165) Troponin T < 0.010ug/L (0.0-0.011) Total Protein 7.5g/dL (6.4-8.4) Albumin 4.6g/dL (3.4-5.0) Digoxin Level 0.7nG/mL (0.9-2.0) Urine Color Yellow (YELLOW) Urine Appearance Clear (CLEAR,HAZY) Urine pH 5.5 (5.0-8.0) Urine Specific [place] 1.010 (1.003-1.035) Urine Protein Negativemg/dL (NEG,TRACE) Urine Glucose (UA) Negativemg/dL (NEGATIVE) Urine Ketones Negativemg/dL (NEGATIVE) Urine Occult Blood Negative (NEGATIVE) Urine Nitrite Negative (NEGATIVE) Urine Bilirubin Negative (NEGATIVE) Urine Urobilinogen Normalmg/dL (NORMAL) Urine Leukocyte Esterase Negative (NEGATIVE) Urine RBC 0-2/hpf (0-2) Urine WBC 0-5/hpf (0-5) Urine Epithelial Cells Few/hpf (NONE-MOD) Urine Crystals None seen (NONE SEEN) Urine Bacteria Few/hpf (NONE-FEW) Urine Hyaline Casts None/lpf (NONE) Urine Granular Casts None seen (NONE SEEN) Urine Waxy Casts None seen (NONE SEEN) Urine Red Blood Cell Casts None seen (NONE SEEN) Urine White Blood Cell Casts None seen (NONE SEEN) Urine Mucus None seen (None Seen) Urine Trichomonas None seen (NONE SEEN) Urine Yeast None (NONE SEEN) Urinalysis Comment None Urine Culture Reflexed Not indicated Result Diagram: 08/12/16 1432 08/12/16 1432 X-Rays, CTs and MRIs X-RAY LEFT KNEE, THREE VIEWS 08/12 IMPRESSION: 1. Oblique fracture through the distal femur with likely intra-articular extension at the intercondylar notch. Moderate effusion is present. There is minimal displacement. Dictated by: Marleen Forbes M.D. on 08/12/2016 at 13:44 Approved by: Marleen Forbes M.D. on 08/12/2016 at 13:[address] KNEE LEFT W/O CONTRAST 08/12 IMPRESSION: 1. Mildly displaced intra-articular fracture of the distal femur as described. 2. Small to moderate sized lipohemarthrosis. Dictated by: Mario Rosenbaum M.D. on 08/12/2016 at 15:04 Approved by: Mario Rosenbaum M.D. on 08/12/2016 at 15:17 Assessment & Plan Deidre Mesa is a 76-year-old female with Chronic Atrial fibrillation, Neuropathy, Hypothyroid who present to [facility] emergency department with chief complaint of left knee pain after a fall today. She was taken to the OR directly from the emergency department for surgical repair 1. Acute Left distal femur intra-articular condyle fracture. Present on admission s/p Left distal femur open reduction internal fixation with Dr Flores. Patient was an acceptable candidate for surgery. She has no increased cardiovascular risk factors. Exercise tolerance is good and no further cardiac testing was recommended. Further testing as outpatient to determine cause of her frequent falls, consider Holter monitor or Zio patch - post operative care as per Orthopedic team - Physical therapy assessment planned for tomorrow (4 steps to her 1 floor house ) - DVT prophylaxis as per Orthopedic recommendations - monitor on telemetry for any arrhythmia 2. Chronic Atrial fibrillation. CHADS2-VASC score 2 however patient refused anticoagulation - monitor on telemetry - continue Digoxin 250 mcg daily for rate control 3. Chronic claudication - continue Pentaxifylline 400 mg bid - Acetaminophen as needed for mild pain/fever/headache - Bowel regimen as needed - Antiemetic as needed Patient admitted under inpatient status with expected length of stay > 2 midnights for severity of present symptoms, complexities of treatment plan and risk for adverse event . Resuscitation Status: CPR: Attempt Resuscitation Jd Henley MD Aug 12, 2016 17:13
[2016-08-13] MEDS: 0.9% Sodium Chloride 1,000 ML IV SCH ×4 (00:38→21:02)
--- NOTE | 2016-08-13 03:24 | NUR ---
Arrival to Room 1003 Patient arrived to room 1003 at 2257 via hospital bed, accompanied by PACU staff Venus Ward and VENUS Brunner. Patient's son was waiting in room . Patients VSS. Patient able to move left toes. Left foot cool to touch. On reassessment, foot temperature was warmer. Patient's eyes closed for most of assessment, but patient answered questions appropriately. Ice saddlebag applied to left knee area. Toradol administered for pain. Call light within reach. Care continues.
[2016-08-13 04:25] VITALS: BP 129/72; PULSE 74; RESP 18; O2SAT 98
[2016-08-13] MEDS: CeFAZolin Inj 2,000 MG in Dextrose 5% 50 ML IV SCH ×3 (04:36→20:57)
[2016-08-13 05:14] VITALS: PULSE 82
[2016-08-13 05:16] LABS: BASOPHILS % (AUTO) 0.1 % (0-3); EOSINOPHILS % (AUTO) 0 % (0-5); MONOCYTES % (AUTO) 5.9 % (4-12); Mean Corpuscular Hemoglobin 28.8 pg (27.0-35.0); NEUTROPHILS % (AUTO) 86.7 % (40-74); Platelet Count 228 bil/L (150-400)
--- NOTE | 2016-08-13 06:12 | DRSVH ---
PROCEDURE: X-RAY LEFT KNEE, ONE OR TWO VIEWS ([id number]) INDICATIONS: 76-year-old female with distal femur fracture fixation. TECHNIQUE: 2 postoperative views of the knee were acquired. COMPARISON: [facility], CT, CT KNEE LT WO CON, 08/12/2016, 14:50. [facility] , CR, XR KNEE 3VW LT, 08/12/2016, 13:11. FINDINGS: Bones: Distal femoral vertical intra-articular fracture is in near anatomic alignment, with overlyin g surgical hardware now present and in expected positions. There is mild left knee joint degeneratio n. Soft tissues: There is postoperative intra-articular fluid and gas. Overlying skin riki are pres ent. IMPRESSION: Vertical intra-articular fracture of the distal femur is in near anatomic alignment afte r interval open reduction internal fixation. Dictated by: Joe Knott M.D. on 08/13/2016 at 6:09 Approved by: Joe Knott M.D. on 08/13/2016 at 6:10
--- NOTE | 2016-08-13 08:43 | PCM.PNORTH ---
Subjective Date of Service: Aug 13, 2016 Visit Information: Reason for Visit L Knee Distal Femur Fracture, R/O Chronic Afib Surgery/Surgery Date Post-Op Day # Date of Admission: Aug 12, 2016 at 17:49 Hospital Day # Subjective Found patient awake and alert and sitting up in bed. No complaints of pain at this time. Discussed patient's weightbearing status and bandages and bracing left leg. Advised likely discharged to skilled facility on postop day 3 barring any unforeseen medical issues. Patient is okay with this and states children will be involved with the process. Postop General: No Complaints, No Shortness of Breath, No Chest Pain Pain Management: IV Push Objective Exam Objective Alert and oriented 3 and pleasant. Interoperative dressing clean dry and intact. Toe wiggle and sensation intact at left lower extremity Calf and thigh are mildly swollen. Roberts is present and working. Vital Signs and I/O Vital Sign - Last Date Time Temp Pulse Resp B/P Pulse Ox O2 Delivery O2 Flow Rate FiO2 08/13/16 05:14 82 08/13/16 04:25 36.4 18 129/72 98 Room Air 08/12/16 22:05 8 Intake and Output 08/12/16 08/12/16 08/13/16 Cumulative From/Thru 14:59 22:59 06:59 08/12/16 11:34 - 08/13/16 06:19 Intake Total 1100 ml 803 ml 1903 ml Output Total 800 ml 900 ml 1700 ml Balance 300 ml -97 ml 203 ml Intake Oral 300 ml 300 ml IV Total 1100 ml 503 ml 1603 ml Output Urine Total 500 ml 900 ml 1400 ml Estimated Blood Loss 300 ml 300 ml Lab & Micro Results Laboratory Tests Test 08/12/16 14:32 08/12/16 15:23 08/13/16 04:53 White Blood Count 7.1th/mm3 (3.8-10.1) 9.7th/mm3 (3.8-10.1) Red Blood Count 5.03mil/mm3 (3.90-5.20) 4.52mil/mm3 (3.90-5.20) Hemoglobin 14.6g/dL (12.0-15.6) 13.0g/dL (12.0-15.6) Hematocrit 42.9% (35.0-46.0) 38.4% (35.0-46.0) Mean Corpuscular Volume 85.3fL (81-100) 85.0fL (81-100) Mean Corpuscular Hemoglobin 29.0pg (27.0-35.0) 28.8pg (27.0-35.0) Mean Corpuscular Hemoglobin Concent 34.0% (32.0-37.0) 33.9% (32.0-37.0) Red Cell Distribution Width 13.8% (12.3-15.4) 13.5% (12.3-15.4) Platelet Count 247bil/L (150-400) 228bil/L (150-400) Neutrophils (%) (Auto) 76.2% (40-74) 86.7% (40-74) Lymphocytes (%) (Auto) 15.7% (14-46) 7.2% (14-46) Monocytes (%) (Auto) 7.1% (4-12) 5.9% (4-12) Eosinophils (%) (Auto) 0.4% (0-5) 0% (0-5) Basophils (%) (Auto) 0.3% (0-3) 0.1% (0-3) Sodium Level 137mEq/L (134-144) Potassium Level 3.8mEq/L (3.5-5.2) Chloride Level 99mEq/L (97-108) Carbon Dioxide Level 22mmol/L (18-29) Blood Urea Nitrogen 12mg/dL (8-27) Creatinine 0.56mg/dL (0.57-1.00) Estimat Glomerular Filtration Rate 152mL/min (>59) Glucose Level 104mg/dL (60-99) Calcium Level 9.8mg/dL (8.5-10.1) Total Bilirubin 0.8mg/dL (0.0-1.2) Aspartate Amino Transf (AST/SGOT) 27U/L (0-50) Alanine Aminotransferase (ALT/SGPT) 23U/L (0-32) Alkaline Phosphatase 56U/L (25-165) Troponin T < 0.010ug/L (0.0-0.011) Total Protein 7.5g/dL (6.4-8.4) Albumin 4.6g/dL (3.4-5.0) Digoxin Level 0.7nG/mL (0.9-2.0) Urine Color Yellow (YELLOW) Urine Appearance Clear (CLEAR,HAZY) Urine pH 5.5 (5.0-8.0) Urine Specific [place] 1.010 (1.003-1.035) Urine Protein Negativemg/dL (NEG,TRACE) Urine Glucose (UA) Negativemg/dL (NEGATIVE) Urine Ketones Negativemg/dL (NEGATIVE) Urine Occult Blood Negative (NEGATIVE) Urine Nitrite Negative (NEGATIVE) Urine Bilirubin Negative (NEGATIVE) Urine Urobilinogen Normalmg/dL (NORMAL) Urine Leukocyte Esterase Negative (NEGATIVE) Urine RBC 0-2/hpf (0-2) Urine WBC 0-5/hpf (0-5) Urine Epithelial Cells Few/hpf (NONE-MOD) Urine Crystals None seen (NONE SEEN) Urine Bacteria Few/hpf (NONE-FEW) Urine Hyaline Casts None/lpf (NONE) Urine Granular Casts None seen (NONE SEEN) Urine Waxy Casts None seen (NONE SEEN) Urine Red Blood Cell Casts None seen (NONE SEEN) Urine White Blood Cell Casts None seen (NONE SEEN) Urine Mucus None seen (None Seen) Urine Trichomonas None seen (NONE SEEN) Urine Yeast None (NONE SEEN) Urinalysis Comment None Urine Culture Reflexed Not indicated Result Diagram: 08/13/16 0453 08/12/16 1432 General Appearance: Alert, Oriented X3, Cooperative, No Acute Distress Extremities: No Compartment Syndrom Noted, Thigh & Calf Soft/Nontender Postop Sensory Motor: Distal Motor Intact, Movement in Toes, Distal Sensation Intact Activity: Activity per PT, Ambulate with PT (touchdown weightbearing only on the left lower extremity using front wheeled walker and knee immobilizer. No range of motion at this time.) Catheters: Urethral 2 Way Roberts Assessment & Plan Impression Deidre Mesa is a 76-year-old female whom is one-day status post left distal femur ORIF performed on 08/12/[address] Johnathan Flores. Patient is very pleasant and is managing well. She is active in her baptism and has a number family members in the area that will be helping her postoperatively. Problems: Plan Postop day #1 from left distal femur ORIF performed on 08/12/[address] Johnathan Flores. Touchdown weightbearing only on the left lower extremity using front wheeled walker and knee immobilizer. Continue formal physical therapy for mobility, safety and gait. Continue pain medication and moved towards by mouth medication as soon as possible. Continue ASA 325 mg EC by mouth twice a day 4 weeks postop for DVT prophylaxis. Interoperative dressing will be changed on postop day #2. Ice and elevate as much as possible. Leave knee immobilizer on 24 7 except for neurovascular checks and repositioning of device as needed. Follow-up in 2 weeks at [facility] orthopedic clinic on prearranged appointment with Dr. Johnathan cameron with two-view high knee x-rays on arrival. Follow up in 6 weeks at [facility] orthopedic clinic with mid-level provider with 2 view high knee x-rays on arrival. Weightbearing will likely be advanced at 6 weeks if radiologic evidence of healing is noted. Anticipate discharge to shelter facility by hospitalist service on postop day #3, 08/15/2016 if patient is stable to do so. VTE Prophylaxis: SCDs, STEFFANY Waldrop, Other (ASA 325 EC by mouth twice a day 4 weeks for DVT prophylaxis.) Resuscitation Status: CPR: Attempt Resuscitation Marc Walker PA-C Aug 13, 2016 08:43
[2016-08-13 08:54] VITALS: PULSE 77
[2016-08-13] MEDS: HYDROcodone-APAP 5-325 mg Tablet PO PRN ×2 (09:18→20:35)
[2016-08-13] MEDS: Senna-Docusate 8.6-50 mg Tablet PO SCH ×2 (09:19→20:33)
[2016-08-13] MEDS: Lactated Ringer's 1,000 ML IV SCH ×2 (10:06→22:36)
--- NOTE | 2016-08-13 10:37 | NUR ---
Evaluation completed. Please go to "Notes" then click on "Assessments and Notes" (bottom left corner of screen). Then select appropriate discipline tab on top of screen.
--- NOTE | 2016-08-13 12:12 | PCM.PNMED ---
Subjective Date of Service Aug 13, 2016 Subjective Patient still feels a little "woozy" especially the first time working with physical therapy this morning. She is going to see if she can work with physical therapy this afternoon. Her pain in her left knee is controlled. She has no other new complaints. Exam Vital Signs Vital Sign - Last Date Time Temp Pulse Resp B/P Pulse Ox O2 Delivery O2 Flow Rate FiO2 08/13/16 08:54 77 08/13/16 04:25 36.4 18 129/72 98 Room Air 08/12/16 22:05 8 Intake and Output 08/12/16 08/12/16 08/13/16 Cumulative From/Thru 15:00 23:00 07:00 08/12/16 11:34 - 08/13/16 06:19 Intake Total 1100 ml 803 ml 1903 ml Output Total 800 ml 900 ml 1700 ml Balance 300 ml -97 ml 203 ml Intake Oral 300 ml 300 ml IV Total 1100 ml 503 ml 1603 ml Output Urine Total 500 ml 900 ml 1400 ml Estimated Blood Loss 300 ml 300 ml Exam General: Patient is lying supine in bed in no apparent distress. She is comfortable without moving. HEENT: Head is atraumatic and normocephalic. Eyes: Pupils are equally round and reactive to light and accommodation. Extraocular muscles are intact. Sclera are white, anicteric. Subconjunctival mucosa is pink. Ears and nose are unremarkable. Oropharynx: There is no mucosal lesions, there is no thrush, there is no pharyngitis. Neck: Is supple, there are no nodes, or masses or tenderness. Chest: Is clear to auscultation and percussion. There are no rales, rhonchi, wheezes or rubs. Heart: Rate is controlled, rhythm is irregular. There is a grade 2/6 systolic ejection murmur heard best at the left sternal border. There is an S4 gallop. There is no appreciable rub or gallop. Abdomen: Good bowel sounds are present. Abdomen is soft, nontender, no organomegaly or masses were appreciated. Extremities: The left lower extremity is in a leg brace with the center of the brace in the area of the knee. There is no strike through bleeding through the postoperative dressing. There is no edema, there is no cellulitis, no rash. Neurologic: There are no focal neurological deficits. Cranial nerves II through XII are intact. There are no sensory or motor deficits. Psychiatric: Patients mood is calm and she shows no sign of agitation. Genital: Deferred Rectal: Deferred Lab and Diagnostics Result Diagram: 08/13/16 0453 08/12/16 1432 X-Rays, CTs and MRIs X-RAY LEFT KNEE, THREE VIEWS 08/12 IMPRESSION: 1. Oblique fracture through the distal femur with likely intra-articular extension at the intercondylar notch. Moderate effusion is present. There is minimal displacement. Dictated by: Marleen Forbes M.D. on 08/12/2016 at 13:44 Approved by: Marleen Forbes M.D. on 08/12/2016 at 13:[address] KNEE LEFT W/O CONTRAST 08/12 IMPRESSION: 1. Mildly displaced intra-articular fracture of the distal femur as described. 2. Small to moderate sized lipohemarthrosis. Dictated by: Mario Rosenbaum M.D. on 08/12/2016 at 15:04 Approved by: Mario Rosenbaum M.D. on 08/12/2016 at 15:17 12-lead ECG Shows atrial fibrillation and possible left ventricular hypertrophy. Assessment & Plan Deidre Mesa is a 76-year-old female with Chronic Atrial fibrillation, Neuropathy, Hypothyroid who present to [facility] emergency department with chief complaint of left knee pain after a fall today. She was taken to the OR directly from the emergency department for surgical repair 1. Acute Left distal femur intra-articular condyle fracture. Present on admission s/p Left distal femur open reduction internal fixation with Dr Flores postoperative day #1. Patient was an acceptable candidate for surgery. She has no increased cardiovascular risk factors. Exercise tolerance is good and no further cardiac testing was recommended. Further testing as outpatient to determine cause of her frequent falls, consider Holter monitor or Zio patch - We will continue post operative care as per Orthopedic team - Physical therapy assessment planned for tomorrow (4 steps to her 1 floor house ) - DVT prophylaxis as per Orthopedic recommendations. Currently patient is on aspirin 325 g by mouth twice a day. We will discuss plans with Dr. Nevarez - We will continue to monitor on telemetry for any arrhythmia 2. Chronic Atrial fibrillation. CHADS2-VASC score 2 however patient refused anticoagulation - We will continue to monitor on telemetry - We will continue continue Digoxin 250 mcg daily for rate control 3. Chronic claudication - continue Pentaxifylline 400 mg bid - Acetaminophen as needed for mild pain/fever/headache - Bowel regimen as needed - Antiemetic as needed Disposition: Patient will likely be here another 48 hours for physical therapy prior to being discharged home. . Pain Evaluation: Adequate Pain Control GI Prophylaxis: Proton Pump Inhibitor VTE Prophylaxis: Dannielle, STEFFANY Waldrop, Other (ASA 325 EC by mouth twice a day 4 weeks for DVT prophylaxis.) VTE Mechanical Devices: Intermittant Pneumatic CD Resuscitation Status: CPR: Attempt Resuscitation Johnathan Kemp MD Aug 13, 2016 12:12
--- NOTE | 2016-08-13 12:31 | NUR ---
Social Work- Initial Assessment Data: See Initial Assessment. Pt is a 76 year old female admitted 08/12/16 for left knee distal femur fracture per H&P. Pt's insurance is [employer]. Pt's PCP is Mackenzie Gonzalez DO. UMESH met with pt and family (daughter in law Bailey [phone]) at bedside regarding discharge plan, SW role explained. Pt alert and oriented x3. Pt resides in [facility] where she states [place]. Pt uses no DME (though she has a cane) and drives. Pt has no HH or SNF history, no LTC or VA benefits. PT evaluated pt, recommending SNF at discharge. SW was pulled aside by family who expressed concern about pt's current living situation (safety, grab bars, etc) and had questions about LTC planning and assisted living. SW discussed group home care planning with Bailey, including next steps after hospitalization, PT's SNF recommendations, and private pay home care. Pt has DPOA on file, DPOA is son Tree Mesa, . Pt anticipated to discharge to SNF. SW to follow up regarding pt's SNF choice. SW will continue to follow. Assessment: Pt who may benefit from SNF. Plan: PT recommending SNF. Pt anticipated to discharge to SNF. SW to follow up regarding pt's SNF choice. SW will continue to follow. ANASTACIA Chaudhry Addendum: 08/13/16 at 1240 by RIVER BOLAÑOS SS Amended: Links added.
[2016-08-13 15:11] VITALS: BP 122/67; PULSE 68; RESP 16; O2SAT 95
--- NOTE | 2016-08-13 19:38 | NUR ---
Pain/mobility Patient medicated this am for pain prior to physical therapy. Patient up to bedside was able to stand . Pt has decline any further pain meds t/o day. Patient taking adequate fluids so IV saline locked. Dressing and brace remain.
[2016-08-13 19:52] VITALS: BP 145/74; PULSE 71; RESP 18; O2SAT 94
--- NOTE | 2016-08-14 01:15 | NUR ---
Pain Patient states that her pain has been well controlled, but states that her pain level is about a 4/10 with activity. One Vicodin given at bed time. Patient Afib, 78 bpm. Room air. Saline locked and drinking adequate fluids. No complaints of N/V at this time.
[2016-08-14] MEDS: CeFAZolin Inj 2,000 MG in Dextrose 5% 50 ML IV SCH ×2 (04:02→12:00)
[2016-08-14 05:19] VITALS: PULSE 71
[2016-08-14] MEDS: HYDROcodone-APAP 5-325 mg Tablet PO PRN ×3 (05:34→16:15)
[2016-08-14 06:16] VITALS: BP 130/80; PULSE 75; RESP 18; O2SAT 97
[2016-08-14 08:24] VITALS: PULSE 67
--- NOTE | 2016-08-14 08:33 | PCM.PNORTH ---
Subjective Date of Service: Aug 14, 2016 Visit Information: Reason for Visit L Knee Distal Femur Fracture, R/O Chronic Afib Surgery/Surgery Date Post-Op Day # Date of Admission: Aug 12, 2016 at 17:49 Hospital Day # Subjective Found patient sleeping this morning but easily awakened. No complaints of pain at this time. When I discussed with patient apparent passive range of motion as documented by physical therapy patient does not recall that her splint was removed yesterday for any range of motion or that she was seen by physical therapy. Patient also does not recall that she was seen by social research assistant for discussion of disposition post discharge and longer term living needs. She is alert and oriented 3 to the moment but may be having some memory issues.. Postop General: No Complaints, No Shortness of Breath, No Chest Pain Pain Management: PO Objective Exam Objective Alert and oriented 3 and pleasant. Interoperative dressings clean dry and intact and knee immobilizer remains in place. Interoperative dressing was removed today and incision is found to be in very good condition with no focal erythema and swelling and no drainage. A new moderately padded island-type dressing was placed at the incision and patient's STEFFANY hose were reapplied as well as knee immobilizer. Toe wiggle and sensation are intact at left lower extremity distally. Calf and thigh are soft and nontender. Roberts is absent. No gait as of this time with formal physical therapy. PROM 0-40 at left knee. Vital Signs and I/O Vital Sign - Last Date Time Temp Pulse Resp B/P Pulse Ox O2 Delivery O2 Flow Rate FiO2 08/14/16 08:24 67 08/14/16 06:16 36.9 18 130/80 97 Room Air 08/12/16 22:05 8 Intake and Output 08/13/16 08/13/16 08/14/16 Cumulative From/Thru 15:00 23:00 07:00 08/12/16 11:34 - 08/14/16 06:45 Intake Total 600 ml 652 ml 3155 ml Output Total 550 ml 1400 ml 3650 ml Balance 50 ml -748 ml -495 ml Intake Oral 600 ml 450 ml 1350 ml IV Total 202 ml 1805 ml Output Urine Total 550 ml 1400 ml 3350 ml Estimated Blood Loss 300 ml # Bowel Movements 0 0 Result Diagram: 08/13/16 0453 08/12/16 2872 General Appearance: Alert, Oriented X3, Cooperative, No Acute Distress Extremities: No Compartment Syndrom Noted, Thigh & Calf Soft/Nontender Postop Sensory Motor: Distal Motor Intact, Movement in Toes, Distal Sensation Intact Activity: Activity per PT, Ambulate with PT (touchdown weightbearing only on the left lower extremity using front wheeled walker and knee immobilizer. No range of motion at this time.) Assessment & Plan Plan Postop day #2 from left distal femur ORIF performed on 08/12/[address] Johnathan Flores. Touchdown weightbearing only on the left lower extremity using front wheeled walker and knee immobilizer. Maintain knee in full extension with the exception of physical therapy for gentle PROM of the knee Continue formal physical therapy for mobility, safety and gait. Continue by mouth pain medication as needed. Nursing please maintain by mouth pain medication and discontinue IV pain meds. Continue ASA 325 mg EC by mouth twice a day 4 weeks postop for DVT prophylaxis. Interoperative dressing is changed today and incision is in good condition with no drainage. A padded bilateral type dressing is placed today and STEFFANY hose are reapplied with knee immobilizer.. Ice and elevate as much as possible. Change dressings as needed if solar loosened. Leave knee immobilizer on 24 7 except for neurovascular checks and repositioning of device as needed. Follow-up in 2 weeks at [facility] orthopedic clinic on prearranged appointment with Dr. Johnathan cameron with two-view high knee x-rays on arrival. Follow up in 6 weeks at [facility] orthopedic clinic with mid-level provider with 2 view high knee x-rays on arrival. Weightbearing will likely be advanced at 6 weeks if radiologic evidence of healing is noted. Anticipate discharge [facility] by hospitalist service on postop day #3, 08/15/2016 if patient is stable to do so. VTE Prophylaxis: SCDs, STEFFANY Hose, Other (ASA 325 EC by mouth twice a day 4 weeks for DVT prophylaxis.) Resuscitation Status: CPR: Attempt Resuscitation Marc Walker PA-C Aug 14, 2016 08:33
[2016-08-14 09:02] LABS: BASOPHILS % (AUTO) 0.3 % (0-3); EOSINOPHILS % (AUTO) 0.9 % (0-5); MONOCYTES % (AUTO) 11.5 % (4-12); Mean Corpuscular Hemoglobin 28.6 pg (27.0-35.0); Mean Corpuscular Volume 86.4 fL (81-100); NEUTROPHILS % (AUTO) 66.4 % (40-74); Platelet Count 201 bil/L (150-400)
[2016-08-14] MEDS: 0.9% Sodium Chloride 1,000 ML IV SCH ×2 (09:09→19:09)
[2016-08-14 09:29] LABS: Magnesium 1.9 mg/dL (1.6-2.6)
[2016-08-14] MEDS: Pantoprazole 40 mg ER24 Tablet PO SCH (09:32)
[2016-08-14] MEDS: Senna-Docusate 8.6-50 mg Tablet PO SCH ×2 (09:32→20:46)
[2016-08-14] MEDS: Lactated Ringer's 1,000 ML IV SCH ×2 (11:06→23:36)
[2016-08-14 11:19] VITALS: BP 126/71; PULSE 78; RESP 18; O2SAT 97
--- NOTE | 2016-08-14 14:04 | NUR ---
Social Work- Readiness for Discharge Data: EMR reviewed. Pt is on day 2 of hospitalization for left knee distal femur fracture per H&P. Pt is not medically stable for discharge, anticipate 1-2 more days. Pt is POD 2. PT is recommending SNF at this time. Pt is max assist STS and transfers. SW spoke with pt at bedside regarding discharge plan, SNF recommendations. Pt stated she had forgotten that we had spoke yesterday, SW explained role and recommendations again. Pt agreeable to SNF recommendation, states she does not want to be a burden to her children. SNF choice list provided. Pt primary choice is [facility]. SW made referral to [facility], gave access and faxed facesheet. SW spoke with son Tree regarding discharge plan, SW role, and SNF referral. UMESH spoke with Amelia in admissions at [facility] who is agreeable to accepting pt with MD Cordero to follow at discharge. Paperwork and PASRR in chart. PASRR has been faxed to [facility]. Pt to discharge to [facility] with MD Cordero to follow. SW will continue to follow. Assessment: Pt who would benefit from SNF. Plan: PT recommending SNF at this time. Pt to discharge to [facility] with MD Cordero to follow. Paperwork and PASRR in chart. Pt updated and agreeable to plan. SW will continue to follow. ANASTACIA Chaudhry
[2016-08-14 16:39] VITALS: BP 144/76; PULSE 77; RESP 16; O2SAT 98
--- NOTE | 2016-08-14 19:36 | NUR ---
Pain Pt rates pain a comfortable 2/10 at rest in bed with increased pain with activity. Premedicated with 1 Vicodin prior to PT and to getting BR, which was effective. Pt is a little concerned with how "loopy" the pain medications have made her. Discussion at bedside change of shift report with NOC RN regarding potential switch to a non-narcotic pain medication.
[2016-08-14 20:18] VITALS: BP 151/72; PULSE 84; RESP 20; O2SAT 98
--- NOTE | 2016-08-14 23:16 | PCM.PNMED ---
Subjective Date of Service Aug 14, 2016 Subjective Patient is feeling better. However she does not think she is well enough to go home and believes that she will have to go to a [facility] facility for rehabilitation. He has no other new complaints. Exam Vital Signs Vital Sign - Last Date Time Temp Pulse Resp B/P Pulse Ox O2 Delivery O2 Flow Rate FiO2 08/14/16 20:18 36.3 84 20 151/72 98 Room Air 08/12/16 22:05 8 Intake and Output 08/13/16 08/13/16 08/14/16 Cumulative From/Thru 15:00 23:00 07:00 08/12/16 11:34 - 08/14/16 06:45 Intake Total 600 ml 652 ml 3155 ml Output Total 550 ml 1400 ml 3650 ml Balance 50 ml -748 ml -495 ml Intake Oral 600 ml 450 ml 1350 ml IV Total 202 ml 1805 ml Output Urine Total 550 ml 1400 ml 3350 ml Estimated Blood Loss 300 ml # Bowel Movements 0 0 Exam General: Patient is lying supine in bed in no apparent distress. She appears more comfortable today than yesterday. He is able to move with less pain. HEENT: Head is atraumatic and normocephalic. Eyes: Pupils are equally round and reactive to light and accommodation. Extraocular muscles are intact. Sclera are white, anicteric. Subconjunctival mucosa is pink. Ears and nose are unremarkable. Oropharynx: There is no mucosal lesions, there is no thrush, there is no pharyngitis. Neck: Is supple, there are no nodes, or masses or tenderness. Chest: Is clear to auscultation and percussion. There are no rales, rhonchi, wheezes or rubs. Heart: Rate is controlled, rhythm is irregular. There is a grade 2/6 systolic ejection murmur heard best at the left sternal border. There is an S4 gallop. There is no appreciable rub or gallop. Abdomen: Good bowel sounds are present. Abdomen is soft, nontender, no organomegaly or masses were appreciated. Extremities: The left lower extremity is in a leg brace with the center of the brace in the area of the knee. There is no strike through bleeding through the postoperative dressing. There is no edema, there is no cellulitis, no rash. Neurologic: There are no focal neurological deficits. Cranial nerves II through XII are intact. There are no sensory or motor deficits. Psychiatric: Patients mood is calm and she shows no sign of agitation. Genital: Deferred Rectal: Deferred Lab and Diagnostics Result Diagram: 08/14/16 0840 08/14/16 0840 X-Rays, CTs and MRIs X-RAY LEFT KNEE, THREE VIEWS 08/12 IMPRESSION: 1. Oblique fracture through the distal femur with likely intra-articular extension at the intercondylar notch. Moderate effusion is present. There is minimal displacement. Dictated by: Marleen Forbes M.D. on 08/12/2016 at 13:44 Approved by: Marleen Forbes M.D. on 08/12/2016 at 13:[address] KNEE LEFT W/O CONTRAST 08/12 IMPRESSION: 1. Mildly displaced intra-articular fracture of the distal femur as described. 2. Small to moderate sized lipohemarthrosis. Dictated by: Mario Rosenbaum M.D. on 08/12/2016 at 15:04 Approved by: Mario Rosenbaum M.D. on 08/12/2016 at 15:17 12-lead ECG Shows atrial fibrillation and possible left ventricular hypertrophy. Assessment & Plan Deidre Mesa is a 76-year-old female with Chronic Atrial fibrillation, Neuropathy, Hypothyroid who present to [facility] emergency department with chief complaint of left knee pain after a fall today. She was taken to the OR directly from the emergency department for surgical repair 1. Acute Left distal femur intra-articular condyle fracture. Present on admission s/p Left distal femur open reduction internal fixation with Dr Flores postoperative day #2. Patient was an acceptable candidate for surgery. She has no increased cardiovascular risk factors. Exercise tolerance is good and no further cardiac testing was recommended. Further testing as outpatient to determine cause of her frequent falls, consider Holter monitor or Zio patch - We will continue post operative care as per Orthopedic team - Physical therapy assessment has been done and it is recommended that patient go to a [facility] facility. (4 steps to her 1 floor house) - DVT prophylaxis as per Orthopedic recommendations. Currently patient is on aspirin 325 g by mouth twice a day per Dr. Flores. 2. Chronic Atrial fibrillation. CHADS2-VASC score 2 however patient refused anticoagulation - We will continue to monitor on telemetry - We will continue continue Digoxin 250 mcg daily for rate control - Patient's rate has been adequately controlled and will discontinue telemetry. 3. Chronic claudication - We will continue Pentaxifylline 400 mg bid - Acetaminophen as needed for mild pain/fever/headache - Bowel regimen as needed - Antiemetic as needed Disposition: Patient will likely be able to be transferred to a [facility] facility tomorrow for rehabilitation. Dr. Soriano will follow in a.m. . Pain Evaluation: Adequate Pain Control GI Prophylaxis: Proton Pump Inhibitor VTE Prophylaxis: SCDs, STEFFANY Waldrop, Other (ASA 325 EC by mouth twice a day 4 weeks for DVT prophylaxis.) VTE Mechanical Devices: Intermittant Pneumatic CD Resuscitation Status: CPR: Attempt Resuscitation PlainsJohnathan MD Aug 14, 2016 23:16
--- NOTE | 2016-08-15 03:37 | NUR ---
Pain pt has rated her pain 2/10 all night and said it is tolerable. she has denied the need for pain medication. she would like to try and not use the vicodin if possible because she says it makes her "loopy". pt has been educated that there are non-narcotic forms of pain relief should she decide she needed them. pt resting comfortably at this time. care continues.
[2016-08-15] MEDS: 0.9% Sodium Chloride 1,000 ML IV SCH ×2 (04:36→12:25)
[2016-08-15 05:08] LABS: BASOPHILS % (AUTO) 0.3 % (0-3); MONOCYTES % (AUTO) 10.5 % (4-12); Mean Corpuscular Hemoglobin 28.7 pg (27.0-35.0); Platelet Count 206 bil/L (150-400)
[2016-08-15 05:30] VITALS: BP 149/74; PULSE 81; RESP 18; O2SAT 97
[2016-08-15] MEDS: HYDROcodone-APAP 5-325 mg Tablet PO PRN ×2 (05:49→13:34)
[2016-08-15] MEDS: Senna-Docusate 8.6-50 mg Tablet PO SCH (08:59)
[2016-08-15] MEDS: Pantoprazole 40 mg ER24 Tablet PO SCH (08:59)
[2016-08-15] MEDS ORDERED: HYDR-4003 PO (09:14)
[2016-08-15] MEDS ORDERED: Aspirin-Expunged Drug, Do Not Renew! PO (09:14)
--- NOTE | 2016-08-15 09:16 | PCM.DIMED ---
Discharge Instructions Date of Service Aug 15, 2016 Dates of Hospitalization Aug 12, 2016 at 17:49 Discharge Diagnosis Discharge Diagnosis Acute Left distal femur intra-articular condyle fracture Medication Instructions Please continue [id number] for 4weeks to prevent blood clots. Diet No restrictions Activity Other Patient Instructions You were hospitalized with fall and resultant hip fracture. You tolerated surgery well, discharged to [facility] for [facility]aining strength. Please follow medicine instruction. follow up with in 2weeks as below. Please discuss further with your primary doctor and rubble placer about blood thinner Instruction from Orthopedic service Continue ASA 325 mg EC by mouth twice a day 4 weeks postop for DVT prophylaxis. Interoperative dressing is changed today and incision is in good condition with no drainage. A padded bilateral type dressing is placed today and STEFFANY hose are reapplied with knee immobilizer.. Ice and elevate as much as possible. Change dressings as needed if solar loosened. Leave knee immobilizer on 05 12 except for neurovascular checks and repositioning of device as needed. Follow-up in 2 weeks at [facility] orthopedic clinic on prearranged appointment with Dr. Johnathan cameron with two-view high knee x-rays on arrival. Follow up in 6 weeks at [facility] orthopedic clinic with mid-level provider with 2 view high knee x-rays on arrival. Weightbearing will likely be advanced at 6 weeks if radiologic evidence of healing is noted. Follow-up Provider: Johnathan Flores MD Follow-up with PCP in: 2 weeks Provider: Mackenzie Goznalez DO Follow-up in: 2 weeks Humberto Soriano MD Aug 15, 2016 09:16
--- NOTE | 2016-08-15 10:36 | PCM.PNORTH ---
Subjective Date of Service: Aug 15, 2016 Visit Information: Reason for Visit L Knee Distal Femur Fracture, R/O Chronic Afib Surgery/Surgery Date Post-Op Day # Date of Admission: Aug 12, 2016 at 17:49 Hospital Day # Subjective Palpation awake and alert this morning and undergoing formal physical therapy. No complaints of pain at this time. [facility] as determined by hospitalist service. Postop General: No Complaints, No Shortness of Breath, No Chest Pain Pain Management: PO Objective Exam Objective Alert and oriented 3 and pleasant. Postoperative dressing is clean dry and intact. Needle and sensation are intact at left lower extremity distally. Calf and thigh are soft and nontender. Roberts catheter is absent. Patient has performed minimal gait with some sidestepping at bed. Physical therapy recommendation is discharged to [facility]. Vital Signs and I/O Vital Sign - Last Date Time Temp Pulse Resp B/P Pulse Ox O2 Delivery O2 Flow Rate FiO2 08/15/16 05:30 36.8 81 18 149/74 97 Room Air 08/12/16 22:05 8 Intake and Output 08/14/16 08/14/16 08/15/16 Cumulative From/Thru 15:00 23:00 07:00 08/12/16 11:34 - 08/15/16 05:30 Intake Total 800 ml 850 ml 4805 ml Output Total 600 ml 750 ml 5000 ml Balance 200 ml 100 ml -195 ml Intake Oral 800 ml 850 ml 3000 ml IV Total 0 ml 1805 ml Output Urine Total 600 ml 750 ml 4700 ml Estimated Blood Loss 300 ml # Voids 1 1 # Bowel Movements 1 0 1 Lab & Micro Results Laboratory Tests Test 08/15/16 04:40 White Blood Count 6.6th/mm3 (3.8-10.1) Red Blood Count 4.07mil/mm3 (3.90-5.20) Hemoglobin 11.7g/dL (12.0-15.6) Hematocrit 35.4% (35.0-46.0) Mean Corpuscular Volume 87.0fL (81-100) Mean Corpuscular Hemoglobin 28.7pg (27.0-35.0) Mean Corpuscular Hemoglobin Concent 33.1% (32.0-37.0) Red Cell Distribution Width 13.7% (12.3-15.4) Platelet Count 206bil/L (150-400) Neutrophils (%) (Auto) 64.0% (40-74) Lymphocytes (%) (Auto) 23.2% (14-46) Monocytes (%) (Auto) 10.5% (4-12) Eosinophils (%) (Auto) 2.0% (0-5) Basophils (%) (Auto) 0.3% (0-3) Sodium Level 139mEq/L (134-144) Potassium Level 4.0mEq/L (3.5-5.2) Chloride Level 101mEq/L (97-108) Carbon Dioxide Level 25mmol/L (18-29) Blood Urea Nitrogen 15mg/dL (8-27) Creatinine 0.65mg/dL (0.57-1.00) Estimat Glomerular Filtration Rate 128mL/min (>59) Glucose Level 108mg/dL (60-99) Calcium Level 8.6mg/dL (8.5-10.1) Magnesium Level 2.0mg/dL (1.6-2.6) Total Bilirubin 0.7mg/dL (0.0-1.2) Aspartate Amino Transf (AST/SGOT) 20U/L (0-50) Alanine Aminotransferase (ALT/SGPT) 13U/L (0-32) Alkaline Phosphatase 41U/L (25-165) Total Protein 5.8g/dL (6.4-8.4) Albumin 3.6g/dL (3.4-5.0) Result Diagram: 08/15/160 08/15/16 0440 General Appearance: Alert, Oriented X3, Cooperative, No Acute Distress Extremities: No Compartment Syndrom Noted, Thigh & Calf Soft/Nontender Postop Sensory Motor: Distal Motor Intact, Movement in Toes, Distal Sensation Intact Activity: Activity per PT, Ambulate with PT (touchdown weightbearing only on the left lower extremity using front wheeled walker and knee immobilizer. No range of motion at this time.) Catheters: None Assessment & Plan Plan Postop day #3 from left distal femur ORIF performed on 08/12/[address] Johnathan Flores. Touchdown weightbearing only on the left lower extremity using front wheeled walker and knee immobilizer. Maintain knee in full extension with the exception of physical therapy for gentle PROM of the knee Continue formal physical therapy for mobility, safety and gait. Continue by mouth pain medication as needed. Nursing please change bandage as needed prior to discharge. Continue ASA 325 mg EC by mouth twice a day 4 weeks postop for DVT prophylaxis. Ice and elevate as much as possible. Change dressings as needed if soiled or loosened. Leave knee immobilizer on 05 12 except for neurovascular checks and repositioning of device as needed. Follow-up in 2 weeks at [facility] orthopedic clinic on prearranged appointment with Dr. Johnathan cameron for wound check and staple removal with two-view high knee x-rays on arrival Follow up in 6 weeks at [facility] orthopedic clinic with mid-level provider with 2 view high knee x-rays on arrival. Weightbearing will likely be advanced at 6 weeks if radiologic evidence of healing is noted. Orthopedics thanks hospitalist service for their help in the medical management of this patient. Anticipate discharge to [facility] facility by hospitalist service today on postop day #3, 08/15/2016 if patient is stable to do so. VTE Prophylaxis: SCDs, STEFFANY Waldrop, Other (ASA 325 EC by mouth twice a day 4 weeks for DVT prophylaxis.) Resuscitation Status: CPR: Attempt Resuscitation Marc Walker PA-C Aug 15, 2016 10:35
--- NOTE | 2016-08-15 11:10 | NUR ---
Social Work: Discharge Data & Assessment: EMR reviewed. Pt is on day 3 of hospitalization for left knee distal femur fracture per H&P. Patient will discharge today to [facility]. SW spoke with patient and patient's son Tree regarding discharge and they are in agreement with patient discharging to [facility]. UMESH spoke with Bri at [facility] and transportation is scheduled for 2pm. Dr. Cordero to follow patient at discharge. Paperwork and PASRR on chart and PASRR was faxed to [facility]. SW will continue to follow. Plan: Patient will discharge to [facility] with MD Cordero to follow. [facility] has cabulance to pick-up the patient at 2pm. Paperwork and PASRR on chart. Patient and patient's son updated and agreeable to plan. SW will continue to follow. Li Finley LMSW, ACM
[2016-08-15] MEDS: Lactated Ringer's 1,000 ML IV SCH (12:06)
--- NOTE | 2016-08-15 13:48 | NUR ---
DISCHARGE Patient's saline lock IV was removed from Left AC, gauze dressing placed over previous site. Medicated with 1 tab norco prior to transfer to [facility]. L knee immobilizer in place, locked in extension. Good pedal pulses and capillary refill prior to d/c. Worked with PT today. 1 person assist with FWW. Transferred into wheelchair and was taken out of facility by arranged transport. all personal belongings taken out of room by daughter in law. Addendum: 08/15/16 at 1353 by ALEX MARTINEZ RN Report called to [facility] @ [phone]
--- NOTE | 2016-08-15 16:13 | PCM.ANEP1 ---
Post Anesthesia Phase 1 PACU Phase 1 Assessment Date of Service: Aug 12, 2016 Vital Signs Vital Signs Date Time Temp Pulse Resp B/P Pulse Ox O2 Delivery O2 Flow Rate FiO2 08/15/16 10:41 Room Air Anesthetic Administered: GA Level of Alertness: Awake, talking MIGUEL's with Equal Strength: No (LIMITED ON LEFT SIDE) Pain Scale Score: 5 Nausea or Vomiting: No Oxygen Delivery: Simple Mask Lungs: Clear to Auscultation, Normal Air Movement Dermatome Level: Full Sensation Junior Gay MD Aug 15, 2016 16:12
--- NOTE | 2016-08-15 16:13 | PCM.ANEP2 ---
Post Anesthesia Evaluation ASA/CMS Post Anesthesia VS in Patient's Normal Range?: Yes Resp Stable; Airway Patent?: Yes CV Function & Hydration Stable: Yes Mental Status Recovered?: Yes Pain control Satisfactory?: Yes N/V Control Satisfactory?: Yes Junior Gay MD Aug 15, 2016 16:13
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
== END 2016-08-15 13:45 | DRG 482 ==
LOC: SED 11:29 → OSC 17:49
PROVIDERS: ADMIT Hospitalist; ATTEND Hospitalist
PROC: 0QSC04Z Reposition Left Lower Femur with Internal Fixation Device, Open Approach (ICD-10-PCS; principal; 2016-08-12 17:15)
DX: S72.432A Displaced fracture of medial condyle of left femur, initial encounter for closed fracture (principal); I48.2 Chronic atrial fibrillation; W01.0XXA Fall on same level from slipping, tripping and stumbling without subsequent striking against object, initial encounter; Y93.89 Activity, other specified; Y92.008 Other place in unspecified non-institutional (private) residence as the place of occurrence of the external cause; I73.9 Peripheral vascular disease, unspecified

== ENCOUNTER 2016-09-10 08:09 | Emergency (ER) | payer MEDICARE, OTHER ==
[~2016-09-10] VITALS: Ht 165.1 cm; Wt 78.2 kg
--- NOTE | 2016-09-10 08:07 | ED.REPORT ---
HPI-Trauma Minor / Fall Date of Service Sep 10, 2016 ED Provider: Casey Watkins MD A pleasant 76 year old female with a history of atrial fibrillation presents to the ER via EMS due to low back pain status post mechanical ground level fall just prior to arrival. She states that she was backing up assisted by her walker and tripped on a rug, landing on on her buttocks/low back. She also complains of a brief episode of rib pain at the time of injury, though reports that this is currently resolved. Patient denies any head/neck pain, LOC, and any other injuries secondary to the fall. She was recently discharged from [facility] and subsequently [facility] assisted living following a left femur fracture repair earlier this month. Nursing Notes Stated Complaint: FALL Nursing Notes Reviewed: Yes (Qoviatech, meds not recommended) Allergies: Coded Allergies: No Known Allergies (Verified , 08/12/16) Scheduled ([Aspirin-Expunged Drug, Do Not Renew!]) 325 MG TABLET 325 MG PO BID Aspirin (Aspirin) 81 Mg Tablet 81 MG PO DAILY Calcium Carbonate (Calcium Carbonate) 600 Mg Tablet 1,200 MG PO BIDWM Cholecalciferol (Vitamin D3) (Vitamin D3) 1,000 Unit Tab.chew 1,000 UNIT PO DAILY Digoxin (Digoxin) 125 Mcg Tablet 125 MCG PO DAILY Digoxin (Digoxin) 250 Mcg Tablet 250 MCG PO DAILY Lactobacillus Acidophilus/Fos (Acidophilus Probiotic Tablet) 500 Million Cell- 50 Mg Tablet 2 EACH PO DAILYWM Multivit with Calcium,Iron,Min (Therapeutic M) 1 Each Tablet 1 EACH PO DAILY Vitamin E Mixed (Vitamin E) 400 Unit Capsule 1,600 UNIT PO DAILY Scheduled PRN Dextran 70/Hypromellose (Nature's Tears Eye Drops) 0.1 %-0.3 % Drops 2 DROP OP Q2H PRN PRN DRY EYES Polyethylene Glycol 3350 (Miralax) 17 Gm Powd.pack 17 GM PO DAILY PRN PRN For Constipation oxyCODONE (oxyCODONE) 5 Mg Tablet 2.5-10 MG PO Q4H PRN PRN For Pain General Time Seen by MD: 08:03 Chief Complaint Fall, Other (Low Back Pain) Hx Obtained From: Patient Arrived By: Ambulance Onset Occurred: Just prior to arrival Symptom Duration: Since onset Location: Back Quality: Painful Severity: Current: Moderate Severity: Maximum: Moderate Associated with: Denies: Headache, Loss of consciousness, Neck pain Pertinent Negative: Pt denies other symptoms Recent Healthcare: Recent doctor visit, Recent hospitalization Similar Sx Previous: Yes Past Medical History Past Medical History Notes: Admit 08/12- 08/15/16 for distal femur fx s/p fall Past Medical History atrial fibrillation - not anticoagulated ([id number] Score 2, declined antocoagulation), on digoxin Hypothyroid Peripheral vascular disease is chronic claudication, on Pentaxifylline Past Surgical History Femur fx repair 08/2016 Smoking History Never Smoker Social History Alcohol Use: Denies alcohol use Ambulatory Status Independent Review of Systems Respiratory: Denies: Non-productive cough, Shortness of breath Musculoskeletal: Reports: Back pain, Lumbar pain, Denies: Extremity pain, Joint pain, Neck pain Neurologic: Denies: Headache, Syncope Complete sys rev & neg: except as marked. GI: Denies: Nausea, Vomiting Physical Exam Initial Vital Signs Vital Signs (First) Date Time Temp Pulse Resp B/P Pulse Ox O2 Delivery O2 Flow Rate FiO2 09/10/16 08:09 36.4 64 14 160/70 99 Room Air Initial VS: Reviewed Head / Eyes: Atraumatic, Normocephalic Cardiovascular: Regular rate & rhythm, Heart sounds normal, Intact distal pulses Abdomen / GI: Soft, Non-tender, No guarding, No rebound, No distention Skin: Warm, Dry, No cyanosis Neurologic: Alert, Oriented, Nonfocal General/Constitutional: Awake, Alert, Well appearing, Well developed, Well nourished Neck: Atraumatic, Supple, Full range of motion, No swelling, Non-tender, No midline vertebral tend Respiratory / Chest: Breath sounds NL, Breath sounds = bilat, No respiratory distress, No rales, No rhonchi, No wheezing, No chest tenderness, No chest wall deformity, No crepitus She complained of Left rib pain briefly at the time of injury. Pain is now resolved. Nontender. Back: Full range of motion, No CVA tenderness Flank / Spine / Paraspinal: Positive: Lumbar spine tender... (Low, L4-L5) Lower Extremity / Pelvis / MS: Neurologic intact, Vascular intact Left leg is in a knee immobilizer. Interpretation & Diagnostics CT LUMBAR SPINE WITHOUT CONTRAST ([id number]) IMPRESSION: 1. Acute to subacute compression deformity at L2. 2. Multilevel degenerative changes most severe at L5-S1. Dictated by: Marleen Forbes M.D. on 09/10/2016 at 9:41 Approved by: Marleen Forbes M.D. on 09/10/2016 at 9:44 Lab Results Interpretation Test 09/10/16 10:01 Urine Color Yellow (YELLOW) Urine Appearance Slightly cloudy Urine pH 6.0 (5.0-8.0) Urine Specific [place] 1.018 (1.003-1.035) Urine Protein Negativemg/dL (NEG,TRACE) Urine Glucose (UA) Negativemg/dL (NEGATIVE) Urine Ketones Negativemg/dL (NEGATIVE) Urine Occult Blood Large (NEGATIVE) Urine Nitrite Negative (NEGATIVE) Urine Bilirubin Negative (NEGATIVE) Urine Urobilinogen Normalmg/dL (NORMAL) Urine Leukocyte Esterase Negative (NEGATIVE) Urine RBC Packed/hpf (0-2) Urine WBC 0-5/hpf (0-5) Urine Epithelial Cells Few/hpf (NONE-MOD) Urine Crystals Oxalic acid crystals (NONE Urine Bacteria Few/hpf (NONE-FEW) Urine Hyaline Casts None/lpf (NONE) Urine Granular Casts None seen (NONE SEEN) Urine Waxy Casts None seen (NONE SEEN) Urine Red Blood Cell Casts None seen (NONE SEEN) Urine White Blood Cell Casts None seen (NONE SEEN) Urine Mucus None seen (None Seen) Urine Trichomonas None seen (NONE SEEN) Urine Yeast None (NONE SEEN) Urinalysis Comment None Urine Culture Reflexed Not indicated Re-Eval/Medical Decision Med Decision/Clinical Course This is a pleasant 76-year-old female who recently suffered a left femur fracture and repair beginning this month, but his artery out of the senior living facility and living at the [facility], she was backing up using her walker when the walker caught on a mask and she went over backwards, now complaining of back pain. She denies numbness weakness paresthesias. She wishes fairly comfortable holding still and declines anything but Tylenol at present in the department. She denies any injury except her back. She clinically appears well. She is in a knee immobilizer and the left leg. She is complaining of tenderness and pain of the lumbar region. A CT scan was obtained and reveals L2 compression fracture, without retropulsion or instability. Visit discussed patient's senior information security consultant orthopedist wanted the case run by neurosurgery, Dr. Kirkland from neurosurgery indicates conservative measures with setting the patient up for a TLSO brace, pain control are all that are indicated. She was started on intranasal calcitonin which is recommended for pain control for 4 weeks, she received her Tylenol, and completed physical therapy assessment here as her trying to sort out how much the patient's compromised by having it both a lumbar fracture, and a healing femur injury. The patient failed her PT assessment and readmission to a senior living facility was indicated. Brady is Comfortable at rest, but requires assistance to get up and move around and is even higher fall risk. And she has not even received any sedating pain medicines. To be a missed AB as all, we were able to arrange for the patient returned to her senior living facility from previous admission. During her prescription to be set up with a TLSO brace at [facility]. Discharged on Tylenol, when necessary oxycodone (without the Tylenol) and MiraLAX with plans to follow up with her regular orthopedist. Additionally while the Department we obtained a urine sample, patient has no dysuria but was noted to have some hematuria, confirmed on urinalysis. Outpatient referral to urology was also provided. Source of Hx: Old records, EMS Re-Evaluation/Progress #1: Time of Eval: 10:30 Re-Evaluation/Progress Note: Discussed imaging results. Re-Evaluation/Progress #2: Time of Eval: 11:41 Re-Evaluation/Progress Note: Updated daughter on the plan of care. All other questions addressed. Re-Evaluation/Progress #3: Time of Eval: 11:47 Re-Evaluation/Progress Note: Discussed patient case with ANASTACIA Fox. He agrees to see the patient. Re-Evaluation/Progress #4: Time of Eval: 12:09 Re-Evaluation/Progress Note: Spinal surgeon never called back. Re-Evaluation/Progress #5: Time of Eval: 13:11 Re-Evaluation/Progress Note: Discussed plan to discharge. Patient is amenable to the plan. Return precautions given. All other questions addressed. Consultation #1: Referral / Consult Name: Michel Martinez DO Consulted With: Orthopedic Call Returned at: 09:50 Consultation #2: Referral / Consult Name: Luke Callejas MD Consulted With: Orthopedic Call Returned at: 13:30 Blood Bank Calendar Control Clerk: Agrees with eval, Agrees with plan Counseled Regarding: Diagnosis, Lab results, Need for follow-up, When/why to return to ED Discharge & Departure Impression: Primary Impression: Fall from ground level Additional Impressions: Compression fracture of lumbar vertebra Encounter type: initial encounter Fracture type: closed Qualified Code: S32.000A - Wedge compression fracture of unspecified lumbar vertebra, initial encounter for closed fracture Hematuria Disposition: Home Discharge Condition All VS Reviewed: Yes Condition: Improved Patient Instructions: Vertebral Compression Fracture (DC) Additional Instructions: 1. The CT scan today revealed a compression fracture of the L2 vertebra. 2. This new injury, you need to return to a senior living facility for care. We have arranged for you to return immediately of this to for senior living care and rehabilitation. 3. You require assistance with any movements in and out of bed. 4. Take Tylenol 1000 mg 3 times a day for pain. 5. Take calcitonin one spray intranasally daily-alternate nostrils-for 4 weeks. This medication helps relieve pain, and speed healing. 6. If needed for more severe pain take oxycodone 2.5 mg-10mg up to every 4-6 hours. Note: This is a medication that causes drowsiness as it is a narcotic, and it also causes constipation. I recommend that he be on a bowel regimen daily to prevent constipation until off this medication. Take MiraLAX 17 g daily. 7. We also recommend that he be fitted for a special back brace that provides more support. This brace is called a "TLSO" brace, and will require seemed to be fitted. Call [facility] at [address] [place] [address] to arrange. 8. On Monday, call your orthopedist to schedule a new recheck given her new injury. 9. On your evaluation today you were found to have blood in her urine, although he did not have any markers of infection. He will need to follow-up with the urologist. Call urologist office (Dr. Bustillo) to schedule an appointment. 10. Restart your previous supplements, and continue your current medications. 11. Return if there are worsened symptoms occur. Referrals: Mackenzie Gonzalez DO (PCP) Kimmie Meneses MD,Johnathan Henriquez MD [place] Attestation Portions of this note were transcribed by Paula Morales. I, Dr. Watkins, personally performed the history, physical exam and medical decision-making; I reviewed and confirmed the accuracy of the information in the transcribed note. Signed by: Balbir Hardy, 09/10/2016 and 13:46 copies to: Kimmie Mensees MD; Mackenzie Gonzalez Christopher L MD Russell, Matthew F MD Sep 10, 2016 08:07 PAULA MORALES Sep 10, 2016 08:15
[2016-09-10 08:09] VITALS: BP 160/70; PULSE 64; RESP 14; O2SAT 99
[~2016-09-10 08:09] MED LIST changes: +ACET-2561 PO; +Aspirin-Expunged Drug, Do Not Renew! PO; +CALC600T20 PO; +CHOL10008 PO; +CYAN500 PO; +DEXT15DR24 OP; +DIGO250T72 PO; +HYDR-4003 PO; +MULT-140 PO; +VITA400C64 PO; -[UNRECOGNIZED DRUG - CODE] PO
[2016-09-10] MEDS ORDERED: DIGO125T73 PO (08:22)
--- NOTE | 2016-09-10 09:46 | DRSVH ---
PROCEDURE: CT LUMBAR SPINE WITHOUT CONTRAST ([id number]) INDICATIONS: Pain, fall TECHNIQUE: Noncontrast 3 mm thick sections acquired from the T12 level to the sacrum. Sagittal and coronal refo rmats were constructed. For radiation dose reduction, the following was used: automated exposure co ntrol. COMPARISON: [facility], , SPINE LUMB 2 OR 3VW, 11/26/2014, 17:48. FINDINGS: Image quality: Excellent. There is an approximate 37% compression deformity at L2, new compared to prior exam. No retrolisthesi s. Areas of lucency suggestive of acute to subacute fracture are noted along the superior endplate tr aversing into the proximal third of the vertebral body. Multilevel degenerative changes are present including is prominent disc and foraminal narrowing at L5 -S1. Limited visualized portions of the soft tissues within the chest, abdomen and pelvis are unremarkable . IMPRESSION: 1. Acute to subacute compression deformity at L2. 2. Multilevel degenerative changes most severe at L5-S1. Dictated by: Marleen Forbes M.D. on 09/10/2016 at 9:41 Approved by: Marleen Forbes M.D. on 09/10/2016 at 9:44
[2016-09-10] MEDS ORDERED: Calcitonin 200 IU 3.7 mL Nasal Spray NASAL SCH ×2 (10:00→11:00)
[2016-09-10] MEDS ORDERED: LACT1TAB21 PO (10:12)
[2016-09-10 10:29] LABS: APPEARANCE,URINE SLIGHTLY CLOUDY (CLEAR,HAZY); COLOR,URINE YELLOW (YELLOW); OCCULT BLOOD,URINE LARGE (NEGATIVE); UROBILINOGEN,URINE NORMAL (NORMAL)
[2016-09-10] MEDS ORDERED: DIGO250T72 PO (12:57)
[2016-09-10] MEDS ORDERED: POLY17PO6 PO (12:57)
[2016-09-10] MEDS ORDERED: ASPI-973 PO (12:57)
[2016-09-10] MEDS ORDERED: OXYC5TAB72 PO (12:57)
== END 2016-09-10 14:07 | disposition home or self-care (01) ==
LOC: SED 08:09
DX: S32.000A Wedge compression fracture of unspecified lumbar vertebra, initial encounter for closed fracture (principal); R31.9 Hematuria, unspecified; W01.198A Fall on same level from slipping, tripping and stumbling with subsequent striking against other object, initial encounter; Y93.89 Activity, other specified; Y92.9 Unspecified place or not applicable; Y99.8 Other external cause status; E03.9 Hypothyroidism, unspecified; Z79.82 Long term (current) use of aspirin; Z79.899 Other long term (current) drug therapy

== ENCOUNTER 2016-11-28 00:20 | Day surgery (SDC) | payer MEDICARE, OTHER ==
[2016-11-28] VITALS (13 sets, daily range): BP systolic 126–139; BP diastolic 66–92; PULSE 60–79; RESP 11–25; O2SAT 97–100
[~2016-11-28] VITALS: Ht 165.1 cm; Wt 75.5 kg
[~2016-11-28 00:20] MED LIST changes: -ACET-2561 PO; +ASPI-973 PO; -Aspirin-Expunged Drug, Do Not Renew! PO; -CYAN500 PO; +DIGO125T73 PO; -HYDR-4003 PO; +LACT1TAB21 PO; +OXYC5TAB72 PO; +POLY17PO6 PO
[2016-11-28 14:14] LABS: BASOPHILS % (AUTO) 0.4 % (0-3); EOSINOPHILS % (AUTO) 2.2 % (0-5); MONOCYTES % (AUTO) 8.2 % (4-12); Mean Corpuscular Hemoglobin 28.3 pg (27.0-35.0); Mean Corpuscular Volume 85.3 fL (81-100); Platelet Count 229 bil/L (150-400)
[2016-11-28] MEDS ORDERED: MULT-73 PO (14:15)
[2016-11-28] MEDS ORDERED: CALCIT PO (14:17)
[2016-11-28] MEDS ORDERED: PROP1DRO OP (14:17)
[2016-11-28 14:18] LABS: INR 1.06 ratio
[2016-11-28] MEDS ORDERED: CeFAZolin 2 Gm/50 mL D5W Duplex Bag IV ONE (14:19)
[2016-11-28] MEDS ORDERED: 0.9% Sodium Chloride 250 ML ONE (14:20)
[2016-11-28] MEDS ORDERED: Bupivacaine-MPF 0.5% 30 mL Inj ONE (14:20)
[2016-11-28] MEDS ORDERED: Heparin 10,000 Unit/1,000 mL NS Premix IV ONE (14:20)
--- NOTE | 2016-11-28 14:34 | NUR ---
[facility] ADMIT 76 YR OLD FEMALE ADMITTED TO [facility] FOR PACEMAKER TODAY AT 1230. IVS STARTED, LABS SENT, AND CONSENT IS SIGNED. RAMÍREZ CATHETER PLACED FOR URINARY FREQUENCY.
[2016-11-28] MEDS ORDERED: fentaNYL-PF 50 mCg/mL 2 mL Inj ONE ×2 (14:42→15:31)
[2016-11-28] MEDS ORDERED: Ondansetron 2 mg/mL 2 mL Inj IVPUSH PRN (15:45)
[2016-11-28] MEDS: CeFAZolin Inj 1 GM in IV Premix 1 EACH IV SCH (16:30)
--- NOTE | 2016-11-28 17:35 | NUR ---
[facility]FF[facility] POST PACEMAKER PT WAS RECEIVED FROM UTILITY SERVICE WORKER AT 1610. LEFT UPPER CHEST DRSG HAS REMAINED C/D/I, NO HEMATOMA NOTED. POST CXR AND EKG WERE OBTAINED, ICE BAG TO LEFT UPPER CHEST. PT AROUSES EASILY AND IS TAKING SIPS OF WATER. RAMÍREZ DRAINING YELLOW URINE. REPORT CALLED TO VONDA Nguyen RN AND PT WILL BE TRANSPORTED TO ROOM 3001 WHEN ROOM IS AVAILABLE. Addendum: 11/28/16 at 1839 by ORLY ALFARO RN PT AND HER NURSING CARE WERE TRANSFERRED TO ROOM 3001 AT 1820.
--- NOTE | 2016-11-28 17:57 | DRSVH ---
PROCEDURE: X-RAY CHEST ONE VIEW, PORTABLE ([id number]) INDICATIONS: For new leads placed TECHNIQUE: One view of the chest was acquired. COMPARISON: [facility], , CHEST 2VW, 06/07/2013, 12:23. FINDINGS: Surgical changes and devices: Interval pacemaker lead placement. Lungs and pleura: No pleural effusions or pneumothorax. Mild increased pulmonary vascularity. Mediastinum: Mediastinal contours appear normal. Heart size is normal. Bones and chest wall: No suspicious bony lesions. Overlying soft tissues appear unremarkable. IMPRESSION: Interval deep placement without pneumothorax. Mild increased pulmonary vascularity. Dictated by: Marleen Forbes M.D. on 11/28/2016 at 17:54 Approved by: Marleen Forbes M.D. on 11/28/2016 at 17:55
--- NOTE | 2016-11-28 18:25 | NUR ---
Transfer Pt transferred to [facility] via bed from [facility] following placement of single lead pacer. A/Ox3 however pt is drowsy, RA, Saline locked. L upper chest dressing is C/D/I with no signs of bleeding, swelling or bruising. Family called at request of pt to notify of Rm location. Roberts cath is draining yellow urine to gravity. Call light in reach, will continue to monitor.
--- NOTE | 2016-11-28 22:20 | OP ---
[address] [address] OPERATIVE REPORT PATIENT: SHIRA CHO : 1940 MR#: [id number] ADMIT: 11/28/2016 JOB ID: [id number] DATE OF SURGERY: 11/28/2016 PREOPERATIVE DIAGNOSIS(ES): 1. Sick sinus syndrome. 2. Atrial fibrillation. POSTOPERATIVE DIAGNOSIS(ES): 1. Sick sinus syndrome. 2. Atrial fibrillation. PROCEDURES PERFORMED: 1. Single-chamber pacemaker implantation. 2. Fluoroscopy. SURGEON: Zi العراقي MD, concrete buster operator attending FLUX PLANT OPERATOR: Arnie Richards. IMPLANTED DEVICES: 1. [employer] pulse generator, model AH1109, serial number [id number]. 2. RV lead [employer] 2088TC, 52 cm, serial number [id number]. ANESTHESIA: Bolus dosing of Versed and fentanyl were utilized for an appropriate level of conscious sedation. INDICATION: The patient is a pleasant 76-year-old woman with a structurally normal heart, syncope and prolonged pauses identified on monitoring and chronic atrial fibrillation. After discussion of risks and benefits of single-chamber pacemaker implantation she opted to proceed. PROCEDURAL DESCRIPTION: Following informed signed consent, the patient was taken to the EP laboratory in fasting nonsedated state, where she was prepped and draped in usual sterile fashion. The left infraclavicular region was infiltrated with 40 cc of a 50/50 mixture of bupivacaine and lidocaine. Once adequate anesthesia had been achieved, access to left axillary vein was gotten with micropuncture kit needle to deploy a 0.035, 3 mm J guidewire. Over this, a 6-Jamaican tear-away sheath was advanced. Once the guidewire was removed, an active fixation lead was advanced to the RV outflow tract and ultimately the RV apex. The lead was affixed in position using its associated active fixation screw. It was connected to the external analyzer and demonstrated appropriately sensed R waves, impedance, capture threshold. The lead was checked to 10 V and there was no evidence of diaphragmatic stimulation. Once the position and redundancy of the lead was confirmed with multiple fluoroscopic views, the lead was anchored to the prepectoral fascia using its associated anchoring sleeve and Ethibond sutures. The pocket was then copiously irrigated with antibiotic solution. The lead was connected to generator. The generator was placed in the pocket and was affixed to the floor of the pocket using 1-0 Ti-Cron suture. The incision was closed with running layers of absorbable suture. The wound was dressed with skin adhesive and a small dressing. At the end of the procedure, needle, sponge, and instrument counts were all correct. COMPLICATIONS: None. ESTIMATED BLOOD LOSS: Negligible. DEVICE MEASURED DATA: 6.1 mV 530 ohms, 0.75 V at 0.4 msec. FINAL PARAMETERS: VVI 60 beats per minute. IMPRESSION: Successful single-chamber pacemaker implantation. PLAN: 1. Stat portable chest x-ray. 2. PA and lateral chest x-ray in the morning. 3. Device interrogation in the morning. 4. IV Ancef through tomorrow. 5. Keflex x7 days. 6. Wound check in one week. ATTENDING STATEMENT: Zi العراقي MD, electrophysiology attending, was present for and supervised/performed all aspects of this procedure.
[2016-11-29 00:23] VITALS: BP 124/72; PULSE 67; RESP 18; O2SAT 97
[2016-11-29] MEDS: CeFAZolin Inj 1 GM in IV Premix 1 EACH IV SCH (01:41)
--- NOTE | 2016-11-29 04:03 | NUR ---
PAIN Pt complained of left incisional chest pain 09/21. Administered 1 [place] PO, effective. Pt resting with eyes closed with no s/sx of pain or discomfort at this time. Call light within reach, using appropriately. Frequent rounding in place. Pleasant and cooperative with care.
[2016-11-29 05:02] VITALS: BP 134/78; PULSE 70; RESP 16; O2SAT 96
[2016-11-29] MEDS: HYDROcodone-APAP 5-325 mg Tablet PO PRN ×2 (05:21→11:05)
--- NOTE | 2016-11-29 07:01 | NUR ---
XRAY Pt off unit for chest xray. process mold technician notified.
[2016-11-29] MEDS ORDERED: Calcium Carbonate (Oyster Shell) 500 mg Tablet PO SCH (08:00)
[2016-11-29] MEDS ORDERED: SYSTANE EYE AFFECT_EYE SCH (08:30)
[2016-11-29] MEDS: 0.9% Sodium Chloride 1,000 ML IV SCH ×3 (08:55→11:44)
--- NOTE | 2016-11-29 09:03 | NUR ---
Refusal of meds Pt refusing all AM vitamins, stating "off brands" make her sick. Pt req to take Digoxin "a minimum of 2 hours after I eat."
[2016-11-29 10:10] VITALS: BP 113/68; PULSE 64; RESP 16; O2SAT 95
--- NOTE | 2016-11-29 10:10 | DRSVH ---
PROCEDURE: X-RAY CHEST, TWO VIEWS ([id number]) INDICATIONS: For new lead placement TECHNIQUE: 2 views of the chest were acquired. COMPARISON: [facility], CR, XR CHEST 1VW (PORTABLE), 11/28/2016, 16:30. FINDINGS: Surgical changes and devices: Left chest wall pacemaker redemonstrated with single lead projecting ov er the right ventricle. Lungs and pleura: No pleural effusions or pneumothorax. Lungs are clear. Mediastinum: Mediastinal contours are normal. Heart size is normal. Bones and chest wall: No suspicious bony abnormalities. There is a kyphosis of the thoracic spine w ith multilevel disc space narrowing. Soft tissues appear unremarkable. IMPRESSION: 1. New pacemaker lead projects over the right ventricle. To print no evidence of pneumothorax. Dictated by: Mario Rosenbaum M.D. on 11/29/2016 at 10:07 Approved by: Mario Rosenbaum M.D. on 11/29/2016 at 10:08
--- NOTE | 2016-11-29 10:27 | PCM.DIMED ---
Discharge Instructions Date of Service Nov 29, 2016 Dates of Hospitalization Diet Discharge Diet: Low fat, Low Sodium, Heart Healthy Activity Discharge Activity: Other (Do not extend left elbow high above shoulder for one month. Do not lift, push or pull more than 10 lbs with the left arm for one month.) Call your provider Call your provider for: Fever or Chills, Bleeding, Excessive diarrhea Patient Instructions Follow-up in: 1 week Mid-level Provider (F9): Jose Holden PA-C Follow-up with Mid-level in: 6 weeks Jose Holden PA-C Nov 29, 2016 10:27
[2016-11-29 10:46] VITALS: PULSE 64
[2016-11-29] MEDS ORDERED: CEPH500C PO (10:51)
--- NOTE | 2016-11-29 10:58 | NUR ---
Armando morley'd Armando morley'd intact per MD order.
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
--- NOTE | 2016-11-29 14:52 | NUR ---
DISCHARGE Pt dc'd home at 1440, off unit in w/c accompanied by pt's dtr in law and this RN. Pt denies any pain/discomfort, vital signs stable and in no apparent distress. Both cardiac PA and this RN discussed pain relief measures with pt, she denied need for prescription pain medication. IV dc'd intact x2, all belongings returned. All instructions for diet, activity, medications, prescriptions and follow up reviewed with pt who reports understanding. Pt given list of f/u blake't times. Pt voiding without issue following removal of ramey.
== END 2016-11-29 14:31 | disposition home or self-care (01) ==
LOC: SOUO 00:20 → MPC 18:31 → SOUO 11-29 14:31
PROVIDERS: ATTEND Internal Medicine Cardiovascular Disease
DX: I49.5 Sick sinus syndrome (principal); I48.2 Chronic atrial fibrillation; E78.5 Hyperlipidemia, unspecified; I50.9 Heart failure, unspecified; E03.9 Hypothyroidism, unspecified; Z91.81 History of falling; Z87.81 Personal history of (healed) traumatic fracture; Z79.82 Long term (current) use of aspirin
CPT/HCPCS: 33207; 36415; 71010; 71020; 80048; 85025; 85610; 93005; 99152; 99153; C1769; C1786; C1892; C1898; J0690; J1644; J2250; J3010; J7050